=== PATIENT | male | born 1960 | race Caucasian/White ===

== ENCOUNTER 2021-06-15 16:08 | Emergency (ER) | payer OTHER ==
[2021-06-15 17:53] VITALS: BP 170/91; PULSE 62; RESP 18; TEMP 98.1
--- NOTE | 2021-06-15 18:35 | ED ---
General Adult HPI - General Chief complaint: Recheck/Abnormal Lab/Rx Stated complaint: Covid Test Time Seen by Provider: 06/15/21 17:58 Source: patient Mode of arrival: ambulatory Limitations: no limitations - Related Data Home Medications Medication Instructions Recorded Confirmed Acetaminophen [Tylenol] 1,000 mg PO Q6H PRN 09/07/15 09/07/15 Previous Rx's Medication Instructions Recorded Ibuprofen [Motrin] 600 mg PO Q6HR PRN #40 day 09/07/15 Allergies Allergy/AdvReac Type Severity Reaction Status Date / Time acetaminophen Allergy Unknown Verified 06/15/21 17:53 [From Darvocet-N 100] propoxyphene napsylate Allergy Unknown Verified 06/15/21 17:53 [From Darvocet-N 100] Review of Systems ROS Statement: Those systems with pertinent positive or pertinent negative responses have been documented in the HPI. ROS Other: All systems not noted in ROS Statement are negative. Past Medical History Past Medical History: Cancer Additional Past Medical History / Comment(s): back pain, colon History of Any Multi-Drug Resistant Organisms: None Reported Past Surgical History: Bowel Resection, Hernia Repair Past Psychological History: No Psychological Hx Reported Smoking Status: Never smoker Past Alcohol Use History: Rare Past Drug Use History: None Reported General Exam Limitations: no limitations Course Vital Signs 06/15/21 17:49 Temperature 98.1 F Pulse Rate 62 Respiratory 18 Rate Blood Pressure 170/91 O2 Sat by Pulse 98 Oximetry Medical Decision Making - Lab Data Lab Results 06/15/21 Range/Units 18:06 Coronavirus (PCR) Detected A (Not Detectd) Disposition Clinical Impression: COVID-19 Disposition: HOME SELF-CARE Condition: Stable Instructions (If sedation given, give patient instructions): Coronavirus Disease 2019 (COVID-19) Additional Instructions: Please return to the emergency department if new or worsening symptoms occur. Can take [id number] zinc, vitamin D, vitamin C. Advised to get pulse oximeter from [facility] and to return to emergency department if oxygen is ever under 90%. Is patient prescribed a controlled substance at d/c from ED?: No Referrals: None,Stated [Primary Care Provider] - 1-2 days Time of Disposition: 18:34
== END 2021-06-15 19:52 | disposition home or self-care (01) ==
LOC: EC 16:08
DX: U07.1 COVID-19 (principal); Z72.89 Other problems related to lifestyle
CPT/HCPCS: 87635; 99282

== ENCOUNTER 2024-03-17 14:31 | Emergency (ER) | payer OTHER ==
[2024-03-17] MEDS: HYDROmorphone 0.5 MG/0.5 ML SYRINGE IVP STA (15:23)
--- NOTE | 2024-03-17 15:24 | ED ---
General Adult HPI - General Source: patient, EMS, RN notes reviewed, old records reviewed Mode of arrival: EMS Limitations: no limitations <Ganesh Wheeler - Last Filed: 03/17/24 15:34> <Raza Zepeda - Last Filed: 03/18/24 06:16> - General Chief complaint: Recheck/Abnormal Lab/Rx Stated complaint: R leg wound Time Seen by Provider: 03/17/24 14:37 - History of Present Illness Initial comments: 63-year-old male with chronic wound to the right ankle. This has been present for at least 6 months. Patient reports increased pain in both the ankle and the right leg itself. He denies new injury. Denies chest pain or dyspnea. Denies fever. Patient denies diagnosis of diabetes. (Ganesh Wheeler) - Related Data Home Medications Medication Instructions Recorded Confirmed Acetaminophen [Tylenol] 1,000 mg PO Q6H PRN 09/07/15 09/07/15 Previous Rx's Medication Instructions Recorded Ibuprofen [Motrin] 600 mg PO Q6HR PRN #40 day 09/07/15 Allergies Allergy/AdvReac Type Severity Reaction Status Date / Time acetaminophen Allergy Unknown Verified 06/15/21 17:53 [From Darvocet-N 100] propoxyphene napsylate Allergy Unknown Verified 06/15/21 17:53 [From Darvocet-N 100] Review of Systems ROS Other: All systems not noted in ROS Statement are negative. <Ganesh Wheeler - Last Filed: 03/17/24 15:34> ROS Other: All systems not noted in ROS Statement are negative. <Raza Zepeda - Last Filed: 03/18/24 06:16> ROS Statement: Those systems with pertinent positive or pertinent negative responses have been documented in the HPI. Past Medical History Past Medical History: Cancer Additional Past Medical History / Comment(s): back pain, colon History of Any Multi-Drug Resistant Organisms: None Reported Past Surgical History: Bowel Resection, Hernia Repair Past Psychological History: No Psychological Hx Reported Smoking Status: Never smoker Past Alcohol Use History: Rare Past Drug Use History: None Reported <Ganesh Wheeler - Last Filed: 03/17/24 15:34> General Exam Limitations: no limitations General appearance: alert, in no apparent distress Head exam: Present: atraumatic, normocephalic Eye exam: Present: normal appearance, PERRL Respiratory exam: Present: normal lung sounds bilaterally. Absent: respiratory distress Cardiovascular Exam: Present: regular rate, normal rhythm GI/Abdominal exam: Present: soft. Absent: distended, tenderness Extremities exam: Present: calf tenderness, other (Ulceration on the medial aspect of the right ankle with mild surrounding erythema) Neurological exam: Present: alert, oriented X3 Psychiatric exam: Present: normal affect, normal mood Skin exam: Present: warm, dry <Ganesh Wheeler - Last Filed: 03/17/24 15:34> Course Vital Signs 03/17/24 03/17/24 03/17/24 14:34 16:19 18:20 Temperature 98.6 F 98.4 F 98.1 F Pulse Rate 84 73 71 Respiratory 18 17 17 Rate Blood Pressure 165/83 135/89 122/72 O2 Sat by Pulse 97 97 96 Oximetry Medical Decision Making - Lab Data Result diagrams: 03/17/24 15:21 <Ganesh Wheeler - Last Filed: 03/17/24 15:34> - Lab Data Result diagrams: 03/17/24 15:21 03/17/24 15:21 <Raza Zepeda - Last Filed: 03/18/24 06:16> - Medical Decision Making Was pt. sent in by a medical professional or institution (RADHA Stiles, CONCHE OPERATOR, urgent care, hospital, or fci...) When possible be specific @ -No Did you speak to anyone other than the patient for history (EMS, parent, family, police, friend...)? What history was obtained from this source @ -No Did you review nursing and triage notes (agree or disagree)? Why? @ -I reviewed and agree with nursing and triage notes Were old charts reviewed (outside hosp., previous admission, EMS record, old EKG, old radiological studies, urgent care reports/EKG's, fci records)? Report findings @ -No old charts were reviewed Differential Diagnosis: Cellulitis, osteomyelitis, diabetic ulcer EKG interpreted by me (3pts min.). @ -As above X-rays interpreted by me (1pt min.). @X-ray ordered, images pending CT interpreted by me (1pt min.). @ -None done U/S interpreted by me (1pt. min.). @ -[Ultrasound for DVT ordered, results pending What testing was considered but not performed or refused? (CT, X-rays, U/S, labs)? Why? @ -None What meds were considered but not given or refused? Why? @ -None Did you discuss the management of the patient with other professionals (professionals i.e. Dr., PA, CONCHE OPERATOR, lab, RT, psych nurse, social media coordinator, dredge mate, teacher, learning officer, case specialist)? Give summary @ -No Was smoking cessation discussed for >3mins.? @ -No Was critical care preformed (if so, how long)? @ -No Were there social determinants of health that impacted care today? How? (Homelessness, low income, unemployed, alcoholism, drug addiction, transportation, low edu. Level, literacy, decrease access to med. care, custodial, rehab)? @ -No Was there de-escalation of care discussed even if they declined (Discuss DNR or withdrawal of care, Hospice)? DNR status @ -No What co-morbidities impacted this encounter? (DM, HTN, Smoking, COPD, CAD, Cancer, CVA, ARF, Chemo, Hep., AIDS, mental health diagnosis, sleep apnea, morbid obesity)? @ -None Was patient admitted / discharged? Hospital course, mention meds given and route, prescriptions, significant lab abnormalities, going to OR and other pertinent info. @ -[Patient with nonhealing wound, pain and swelling to the right lower extremity, workup is initiated, care signed out at shift change awaiting completed workup. (Ganesh Wheeler) Was patient admitted / discharged? Hospital course, mention meds given and route, prescriptions, significant lab abnormalities, going to OR and other pe rtinent info. @ -[I received this patient as a signout, to review the imaging studies. The x-ray of the ankle reveals no evidence of osteomyelitis, bony injury, or gas in the soft tissue., By my interpretation. The patient to follow-up with the wound care center. Undiagnosed new problem with uncertain prognosis? @ -[No] Drug Therapy requiring intensive monitoring for toxicity (Heparin, Nitro, Insulin, Cardizem)? @ -[No] Were any procedures done? @ -[No] Diagnosis/symptom? @ -[Lower extremity ulcer Acute, or Chronic, or Acute on Chronic? @ -[Chronic Uncomplicated (without systemic symptoms) or Complicated (systemic symptoms)? @ -[Uncomplicated Side effects of treatment? @ -[No] Exacerbation, Progression, or Severe Exacerbation? @ -[No] Poses a threat to life or bodily function? How? (Chest pain, [place], [place], pneumonia, PE, COPD, DKA, ARF, appy, cholecystitis, CVA, Diverticulitis, Homicidal, Suicidal, threat to staff... and all critical care pts) @ -[No] (Raza Zepeda) - Lab Data Lab Results 03/17/24 03/17/24 Range/Units 15:21 15:21 WBC 8.4 (3.8-10.6) k/uL RBC 5.06 (4.30-5.90) m/uL Hgb 14.4 (13.0-17.5) gm/dL Hct 45.4 (39.0-53.0) % MCV 89.8 (80.0-100.0) fL MCH 28.4 (25.0-35.0) pg MCHC 31.6 (31.0-37.0) g/dL RDW 13.6 (11.5-15.5) % Plt Count 313 (150-450) k/uL MPV 7.2 Neutrophils % 63 % Lymphocytes % 25 % Monocytes % 6 % Eosinophils % 2 % Basophils % 1 % Neutrophils # 5.3 (1.3-7.7) k/uL Lymphocytes # 2.1 (1.0-4.8) k/uL Monocytes # 0.5 (0-1.0) k/uL Eosinophils # 0.2 (0-0.7) k/uL Basophils # 0.1 (0-0.2) k/uL Hypochromasia Slight Sodium 137 (137-145) mmol/L Potassium 4.9 (3.5-5.1) mmol/L Chloride 105 (98-107) mmol/L Carbon Dioxide 23 (22-30) mmol/L Anion Gap 9 mmol/L BUN 10 (9-20) mg/dL Creatinine 0.96 (0.66-1.25) mg/dL Est GFR (CKD-EPI)AfAm >90 (>60 ml/min/1.73 sqM) Est GFR (CKD-EPI)NonAf 85 (>60 ml/min/1.73 sqM) Glucose 98 (74-99) mg/dL Calcium 9.6 (8.4-10.2) mg/dL Total Bilirubin 1.0 (0.2-1.3) mg/dL AST 36 (17-59) U/L ALT 24 (4-49) U/L Alkaline Phosphatase 75 (38-126) U/L Total Protein 8.3 H (6.3-8.2) g/dL Albumin 4.5 (3.5-5.0) g/dL Disposition Is patient prescribed a controlled substance at d/c from ED?: No <Ganesh Wheeler - Last Filed: 03/17/24 15:34> Is patient prescribed a controlled substance at d/c from ED?: No <Raza Zepeda - Last Filed: 03/18/24 06:16> Clinical Impression: Chronic wound of extremity Disposition: HOME SELF-CARE Condition: Good Referrals: None,Stated [Primary Care Provider] - 1-2 days [facility] [NON-STAFF] - 1-2 days
[2024-03-17 15:32] LABS: Basophils # (A) 0.1 k/uL (0-0.2); Basophils % (A) 1 %; Eosinophils # (A) 0.2 k/uL (0-0.7); Eosinophils % (A) 2 %; HCT 45.4 % (39.0-53.0); HGB 14.4 gm/dL (13.0-17.5); Hypochromasia Slight; Lymphocytes # (A) 2.1 k/uL (1.0-4.8); Lymphocytes % (A) 25 %; MCH 28.4 pg (25.0-35.0); MCHC 31.6 g/dL (31.0-37.0); MCV 89.8 fL (80.0-100.0); Mean Platelet Volume 7.2; Monocytes # (A) 0.5 k/uL (0-1.0); Monocytes % (A) 6 %; Neutrophils # (A) 5.3 k/uL (1.3-7.7); Neutrophils % (A) 63 %; Platelet Count 313 k/uL (150-450); RBC 5.06 m/uL (4.30-5.90); RDW 13.6 % (11.5-15.5); WBC 8.4 k/uL (3.8-10.6)
[2024-03-17 15:43] LABS: ALT 24 U/L (4-49); African American GFR (CKD) >90 (>60 ml/min/1.73 sqM); Anion Gap 9 mmol/L; Blood Urea Nitrogen 10 mg/dL (9-20); Calcium 9.6 mg/dL (8.4-10.2); Carbon Dioxide 23 mmol/L (22-30); Chloride 105 mmol/L (98-107); Glucose 98 mg/dL (74-99); Non-African American GFR(CKD) 85 (>60 ml/min/1.73 sqM); Sodium 137 mmol/L (137-145)
[2024-03-17 15:52] LABS: AST 36 U/L (17-59); Albumin 4.5 g/dL (3.5-5.0); Potassium 4.9 mmol/L (3.5-5.1); Total Protein 8.3 g/dL (6.3-8.2)
[2024-03-17 15:53] LABS: Alkaline Phosphatase 75 U/L (38-126)
--- NOTE | 2024-03-17 16:12 | US ---
EXAMINATION TYPE: US venous doppler duplex LE RT DATE OF EXAM: 03/17/2024 4:02 PM COMPARISON: NONE CLINICAL INDICATION: Male, 63 years old with history of pain/swelling; [place] injury about 6 mo nths ago TECHNIQUE: The lower extremity deep venous system is examined utilizing real time linear array sonog darin with graded compression, color doppler sonography, and spectral doppler. SIDE PERFORMED: Right FINDINGS: VESSELS IMAGED: Common Femoral Vein Deep Femoral Vein Greater Saphenous Vein * Femoral Vein Popliteal Vein Small Saphenous Vein * Proximal Calf Veins (* superficial vessels) Right Leg: Negative for DVT Left Leg: Not ordered Grayscale, color doppler, spectral doppler imaging performed of the deep veins of the lower extremiti es. IMPRESSION: 1. Right lower extremity ultrasound negative for deep thrombosis [facility], Workstation: [facility], 03/17/2024 4:09 PM
--- NOTE | 2024-03-17 16:24 | XR ---
EXAMINATION TYPE: XR ankle complete RT DATE OF EXAM: 03/17/2024 COMPARISON: None HISTORY: Nonhealing wound right ankle TECHNIQUE: 3 view right ankle FINDINGS: Ankle mortise is intact. No acute fracture or dislocation is evident. There is soft tissue change through the medial distal right foreleg. Mild soft tissue swelling over t he medial malleolus. Underlying cortex appears intact. No acute osteomyelitis radiographically appare nt. Three-phase bone scan performed for sufficient clinical suspicion. IMPRESSION: 1. No radiographic evidence of osteomyelitis. 2. Soft tissue changes medial right ankle. [facility], Workstation: [facility], 03/17/2024 4:21 PM
[2024-03-17 16:25] VITALS: RESP 17
[2024-03-17 18:23] VITALS: BP 122/72; PULSE 71; TEMP 98.1
== END 2024-03-17 18:27 | disposition home or self-care (01) ==
LOC: EC 14:31
CPT/HCPCS: 36415; 80053; 85025; 99284

== ENCOUNTER 2024-05-18 17:11 | Emergency (ER) | payer OTHER ==
[2024-05-18 17:18] VITALS: TEMP 97.7
[2024-05-18] MEDS: LIDOCAINE VISCOUS 2% 15 ML CUP MUCOUS MEM STA (17:40)
--- NOTE | 2024-05-18 18:03 | XR ---
EXAMINATION TYPE: XR soft tissue neck DATE OF EXAM: 05/18/2024 5:50 PM COMPARISON: None available. CLINICAL INDICATION: Male, 63 years old with history of cough; [facility] TECHNIQUE: The soft tissues of the neck were imaged in frontal and lateral views. FINDINGS: The prevertebral soft tissues are unremarkable. There is no evidence of mass effect or trac heal deviation. No acute osseous abnormality demonstrated. No evidence of subglottic narrowing. Cer vical spine degenerative changes. IMPRESSION: No significant abnormality identified within the soft tissues of the neck. [facility], , 05/18/2024 6:01 PM
--- NOTE | 2024-05-18 19:19 | ED ---
ENT HPI - General Chief complaint: ENT Stated complaint: Sore throat Time Seen by Provider: 05/18/24 17:15 Source: patient, EMS Mode of arrival: EMS Limitations: no limitations - History of Present Illness Initial comments: This patient is a 63-year-old man who presents to have evaluation for sore throat. The patient states he is having approximately a month of intermittent burning pain that is worse with swallowing. He states it seems to be a little worse over the past few days. The patient has not developed any change in his voice. No difficulty with breathing. He has been able to control his own secretions. Patient has not noted fever or chills. MD complaint: sore throat Onset/Timin -: month(s) Location: throat Severity: moderate Quality: burning Consistency: intermittent Improves with: none Worsens with: swallowing Associated Symptoms: cough - Related Data Home Medications Medication Instructions Recorded Confirmed Acetaminophen [Tylenol] 1,000 mg PO Q6H PRN 09/07/15 09/07/15 Previous Rx's Medication Instructions Recorded Ibuprofen [Motrin] 600 mg PO Q6HR PRN #40 day 09/07/15 Lidocaine Viscous [Xylocaine 5 ml PO Q3HR PRN #100 ml 05/18/24 Viscous 2%] Amoxic-Pot Clav 875-125Mg 1 tab PO Q12HR #20 tab 05/21/24 [Augmentin 875-125] Ibuprofen [Motrin] 800 mg PO Q6HR #30 tab 05/21/24 Allergies Allergy/AdvReac Type Severity Reaction Status Date / Time acetaminophen Allergy Unknown Verified 05/18/24 17:17 [From Darvocet-N 100] ibuprofen [From Motrin] Allergy Unknown Verified 05/21/24 12:38 propoxyphene napsylate Allergy Unknown Verified 05/18/24 17:17 [From Darvocet-N 100] Review of Systems ROS Statement: Those systems with pertinent positive or pertinent negative responses have been documented in the HPI. ROS Other: All systems not noted in ROS Statement are negative. Constitutional: Denies: fever, chills ENT: Reports: throat pain. Denies: ear pain, hearing loss, congestion Respiratory: Denies: cough, dyspnea Cardiovascular: Denies: chest pain, palpitations Gastrointestinal: Denies: abdominal pain, nausea, vomiting Genitourinary: Denies: dysuria Musculoskeletal: Denies: arthralgia Skin: Denies: rash Neurological: Denies: headache Past Medical History Past Medical History: Cancer Additional Past Medical History / Comment(s): back pain, colon History of Any Multi-Drug Resistant Organisms: None Reported Past Surgical History: Bowel Resection, Hernia Repair Past Psychological History: No Psychological Hx Reported Smoking Status: Never smoker Past Alcohol Use History: Occasional Past Drug Use History: None Reported General Exam Limitations: no limitations General appearance: alert, in no apparent distress Head exam: Present: atraumatic, normocephalic Eye exam: Present: normal appearance. Absent: scleral icterus, conjunctival injection ENT exam: Present: normal oropharynx, mucous membranes moist, TM's normal bilaterally, normal external ear exam Neck exam: Present: normal inspection, full ROM. Absent: tenderness, meningismus, lymphadenopathy Respiratory exam: Present: normal lung sounds bilaterally. Absent: respiratory distress, wheezes, rales, rhonchi, stridor, accessory muscle use Cardiovascular Exam: Present: regular rate, normal rhythm, normal heart sounds. Absent: systolic murmur, diastolic murmur, rubs, gallop GI/Abdominal exam: Present: soft. Absent: distended, tenderness, guarding, rebound, organomegaly Neurological exam: Present: CN II-XII intact Skin exam: Present: warm, dry, intact, normal color. Absent: rash Course Vital Signs 05/18/24 05/18/24 05/18/24 17:12 18:26 19:56 Temperature 97.7 F Pulse Rate 67 60 81 Respiratory 20 16 18 Rate Blood Pressure 152/104 128/85 131/85 O2 Sat by Pulse 98 96 97 Oximetry Medical Decision Making - Medical Decision Making The patient had soft tissue of the neck x-ray that I interpreted as negative for evidence of airway compromise or obvious mass. Was pt. sent in by a medical professional or institution (, PA, JOB CHECKER, urgent care, hospital, or retirement...) When possible be specific @ -[No] Did you speak to anyone other than the patient for history (EMS, parent, family, police, friend...)? What history was obtained from this source @ -[No] Did you review nursing and triage notes (agree or disagree)? Why? @ -[I reviewed and agree with nursing and triage notes] Were old charts reviewed (outside hosp., previous admission, EMS record, old EKG, old radiological studies, urgent care reports/EKG's, retirement records)? Report findings @ -[No old charts were reviewed] Differential Diagnosis (chest pain, altered mental status, abdominal pain women, abdominal pain men, vaginal bleeding, weakness, fever, dyspnea, syncope, headache, dizziness, GI bleed, back pain, seizure, CVA, palpatations, mental health, musculoskeletal)? @ -[differential pharyngitis includes but not limited to: Infectious pharyng itis, reflux disease, trauma, mass (including neoplasm), autoimmune disorder, EKG interpreted by me (3pts min.). @ -[As above] X-rays interpreted by me (1pt min.). @ -[I interpreted as above CT interpreted by me (1pt min.). @ -[None done] U/S interpreted by me (1pt. min.). @ -[None done] What testing was considered but not performed or refused? (CT, X-rays, U/S, labs)? Why? @ -[None] What meds were considered but not given or refused? Why? @ -[None] Did you discuss the management of the patient with other professionals (professionals i.e. , PA, JOB CHECKER, lab, RT, psych nurse, social scientist, ballet dancer, teacher, army officer, outpatient case manager)? Give summary @ -[No] Was smoking cessation discussed for >3mins.? @ -[No] Was critical care preformed (if so, how long)? @ -[No] Were there social determinants of health that impacted care today? How? (Homelessness, low income, unemployed, alcoholism, drug addiction, transportation, low edu. Level, literacy, decrease access to med. care, nursing home, re hab)? @ -[No] Was there de-escalation of care discussed even if they declined (Discuss DNR or withdrawal of care, Hospice)? DNR status @ -[No] What co-morbidities impacted this encounter? (DM, HTN, Smoking, COPD, CAD, Cancer, CVA, ARF, Chemo, Hep., AIDS, mental health diagnosis, sleep apnea, morbid obesity)? @ -[None] Was patient admitted / discharged? Hospital course, mention meds given and ro [place], prescriptions, significant lab abnormalities, going to OR and other pertinent info. @ -[Patient is 63-year-old man here with sore throat and mild dysphagia. I am unable to visualize any lesion here, and the patient has no evidence of airway compromise. Given the duration of symptoms, the patient will follow with ENT for further workup. Discussed return parameters as well. Undiagnosed new problem with uncertain prognosis? @ -[No] Drug Therapy requiring intensive monitoring for toxicity (Heparin, Nitro, Insulin, Cardizem)? @ -[No] Were any procedures done? @ -[No] Diagnosis/symptom? @ -[Pharyngitis Acute, or Chronic, or Acute on Chronic? @ -[Acute Uncomplicated (without systemic symptoms) or Complicated (systemic symptoms)? @ -[Uncomplicated Side effects of treatment? @ -[No] Exacerbation, Progression, or Severe Exacerbation? @ -[No] Poses a threat to life or bodily function? How? (Chest pain, [place], [place], pneumonia, PE, COPD, DKA, ARF, appy, cholecystitis, CVA, Diverticulitis, Homicidal, Suicidal, threat to staff... and all critical care pts) @ -[Low likelihood but does require follow-up All treatments are based on ideal body weight as in ED triage - Lab Data Lab Results 05/18/24 Range/Units 17:42 Group A Strep (PCR) NOT DETECTED (Not Detectd) Disposition Clinical Impression: Pharyngitis Disposition: HOME SELF-CARE Condition: Good Instructions (If sedation given, give patient instructions): Pharyngitis (ED) Prescriptions: Lidocaine Viscous [Xylocaine Viscous 2%] 5 ml PO Q3HR PRN #100 ml PRN Reason: Sore Throat Is patient prescribed a controlled substance at d/c from ED?: No Referrals: None,Stated [Primary Care Provider] - 1-2 days Khoi Zuniga MD [STAFF PHYSICIAN] - 1-2 days
[2024-05-18 19:57] VITALS: BP 131/85; PULSE 81; RESP 18
== END 2024-05-18 19:58 | disposition home or self-care (01) ==
LOC: EC 17:11
DX: J02.9 Acute pharyngitis, unspecified (principal); Z88.6 Allergy status to analgesic agent; Z88.8 Allergy status to other drugs, medicaments and biological substances
CPT/HCPCS: 70360; 87651; 99283

== ENCOUNTER 2024-05-21 12:11 | Emergency (ER) | payer OTHER ==
[2024-05-21 12:37] VITALS: RESP 18
--- NOTE | 2024-05-21 13:18 | ED ---
General Adult HPI - General Chief complaint: ENT Stated complaint: Sore throat Time Seen by Provider: 05/21/24 12:40 Source: patient, RN notes reviewed Mode of arrival: ambulatory Limitations: no limitations - History of Present Illness Initial comments: This is a 63-year-old male presenting to the emergency room for chief complaint of a reevaluation. Patient states that over the weekend he presented for throat pain and ear pain. Patient was discharged home with lidocaine spray however states that symptoms have not improved. States that he has pain with swallowing. He states he has been experiencing a dry cough as well. Endorses chills with no fevers. Denies emesis, abdominal pain, chest pain. - Related Data Home Medications Medication Instructions Recorded Confirmed Acetaminophen [Tylenol] 1,000 mg PO Q6H PRN 09/07/15 09/07/15 Previous Rx's Medication Instructions Recorded Ibuprofen [Motrin] 600 mg PO Q6HR PRN #40 day 09/07/15 Lidocaine Viscous [Xylocaine 5 ml PO Q3HR PRN #100 ml 05/18/24 Viscous 2%] Amoxic-Pot Clav 875-125Mg 1 tab PO Q12HR #20 tab 05/21/24 [Augmentin 875-125] Ibuprofen [Motrin] 800 mg PO Q6HR #30 tab 05/21/24 Allergies Allergy/AdvReac Type Severity Reaction Status Date / Time acetaminophen Allergy Unknown Verified 05/18/24 17:17 [From Darvocet-N 100] ibuprofen [From Motrin] Allergy Unknown Verified 05/21/24 12:38 propoxyphene napsylate Allergy Unknown Verified 05/18/24 17:17 [From Darvocet-N 100] Review of Systems ROS Statement: Those systems with pertinent positive or pertinent negative responses have been documented in the HPI. ROS Other: All systems not noted in ROS Statement are negative. Past Medical History Past Medical History: Cancer Additional Past Medical History / Comment(s): back pain, colon History of Any Multi-Drug Resistant Organisms: None Reported Past Surgical History: Bowel Resection, Hernia Repair Past Psychological History: No Psychological Hx Reported Smoking Status: Never smoker Past Alcohol Use History: Occasional Past Drug Use History: None Reported General Exam Limitations: no limitations General appearance: alert, in no apparent distress Expanded TM/Canal exam: Erythema: Right TM, Bulging: Right TM, Effusion: Right TM Throat exam: tonsillar erythema. negative: tonsillar exudate, R peritonsillar mass, L peritonsillar mass Neck exam: Present: normal inspection, full ROM, lymphadenopathy. Absent: meningismus Respiratory exam: Present: normal lung sounds bilaterally. Absent: respiratory distress, wheezes, rales, rhonchi, stridor Cardiovascular Exam: Present: regular rate, normal rhythm, normal heart sounds. Absent: systolic murmur, diastolic murmur, rubs, gallop, clicks GI/Abdominal exam: Present: soft, normal bowel sounds. Absent: distended, tenderness, guarding, rebound, rigid Back exam: Present: normal inspection Course Vital Signs 05/21/24 05/21/24 12:35 15:01 Temperature 98.5 F 98 F Pulse Rate 79 71 Respiratory 18 18 Rate Blood Pressure 135/81 O2 Sat by Pulse 97 95 Oximetry Medical Decision Making - Medical Decision Making Was pt. sent in by a medical professional or institution (, PA, ROAD PACKER OPERATOR, urgent care, hospital, or [facility]...) When possible be specific @ -No Did you speak to anyone other than the patient for history (EMS, parent, family, police, friend...)? What history was obtained from this source @ -No Did you review nursing and triage notes (agree or disagree)? Why? @ -I reviewed and agree with nursing and triage notes Were old charts reviewed (outside hosp., previous admission, EMS record, old EKG, old radiological studies, urgent care reports/EKG's, [facility] records)? Report findings @ -Reviewed patient's previous x-ray soft tissue neck with no acute process Differential Diagnosis (chest pain, altered mental status, abdominal pain women, abdominal pain men, vaginal bleeding, weakness, fever, dyspnea, syncope, headache, dizziness, GI bleed, back pain, seizure, CVA, palpatations, mental health, musculoskeletal)? @ -COVID 19, RSV, influenza, pneumonia, acute bronchitis, URI, this list is not all inclusive EKG interpreted by me (3pts min.). @ -None X-rays interpreted by me (1pt min.). @ -None done CT interpreted by me (1pt min.). @ -None done U/S interpreted by me (1pt. min.). @ -None done What testing was considered but not performed or refused? (CT, X-rays, U/S, labs)? Why? @ -None What meds were considered but not given or refused? Why? @ -None Did you discuss the management of the patient with other professionals (professionals i.e. , PA, ROAD PACKER OPERATOR, lab, RT, psych nurse, psych social worker, fur liner, te acher, employment security officer, complex case manager)? Give summary @ -No Was smoking cessation discussed for >3mins.? @ -No Was critical care preformed (if so, how long)? @ -No Were there social determinants of health that impacted care today? How? (Homelessness, low income, unemployed, alcoholism, drug addiction, transportation, low edu. Level, literacy, decrease access to med. care, correction, rehab)? @ -No Was there de-escalation of care discussed even if they declined (Discuss DNR or withdrawal of care, Hospice)? DNR status @ -No What co-morbidities impacted this encounter? (DM, HTN, Smoking, COPD, CAD, Cancer, CVA, ARF, Chemo, Hep., AIDS, mental health diagnosis, sleep apnea, morbid obesity)? @ -None Was patient admitted / discharged? Hospital course, mention meds given and route, prescriptions, significant lab abnormalities, going to OR and other pertinent info. @ -Discharge. 63-year-old male presenting with sore throat and ear pain. vitals are stable. He is noted to have posterior oropharynx erythema with no signs of peritonsillar exudates and/or abscess. Physical exam of the right TM concerning for otitis media with effusion, erythema and bulging TM. Patient's provided with dose of Decadron. Swabs including flu, COVID, RSV, strep negative. Patient provided with prescription for Augmentin and instructed to follow-up with primary care provider for further evaluation. Additionally, patient is inquired in regard to allergy for ibuprofen however states that he has been taking Motrin and ibuprofen at home therefore prescription is sent to the pharmacy for ibuprofen 800. Discussed with Dr. Whitaker Undiagnosed new problem with uncertain prognosis? @ -No Drug Therapy requiring intensive monitoring for toxicity (Heparin, Nitro, Insulin, Cardizem)? @ -No Were any procedures done? @ -No Diagnosis/symptom? @ -otitis media, pharyngitis Acute, or Chronic, or Acute on Chronic? @ -acute Uncomplicated (without systemic symptoms) or Complicated (systemic symptoms)? @ -uncomplicated Side effects of treatment? @ -No Exacerbation, Progression, or Severe Exacerbation? @ -No Poses a threat to life or bodily function? How? (Chest pain, [place], [place], pneumonia, PE, COPD, DKA, ARF, appy, cholecystitis, CVA, Diverticulitis, Homicidal, Suicidal, threat to staff... and all critical care pts) @ -No - Lab Data Lab Results 05/21/24 05/21/24 Range/Units 13:24 13:24 Influenza Type A (PCR) Not Detected (Not Detectd) Influenza Type B (PCR) Not Detected (Not Detectd) RSV (PCR) Not Detected (Not Detectd) SARS-CoV-2 (PCR) Not Detected (Not Detectd) Group A Strep (PCR) NOT DETECTED (Not Detectd) Disposition Clinical Impression: Otitis media, Pharyngitis Disposition: HOME SELF-CARE Condition: Good Instructions (If sedation given, give patient instructions): Ear Infection (ED) Additional Instructions: Please return to the Emergency Department if symptoms worsen or any other concerns. Prescriptions: Amoxic-Pot Clav 875-125Mg [Augmentin 875-125] 1 tab PO Q12HR #20 tab Ibuprofen [Motrin] 800 mg PO Q6HR #30 tab Is patient prescribed a controlled substance at d/c from ED?: No Referrals: None,Stated [Primary Care Provider] - 1-2 days Time of Disposition: 14:41
[2024-05-21] MEDS: DEXAMETHASONE SOD PHOSPHATE 4 MG/ML 1 ML VIAL IM STA (13:25)
[2024-05-21 15:02] VITALS: BP 135/81; PULSE 71; TEMP 98
== END 2024-05-21 15:04 | disposition home or self-care (01) ==
LOC: EC 12:11
DX: H66.91 Otitis media, unspecified, right ear (principal); J02.9 Acute pharyngitis, unspecified; Z88.6 Allergy status to analgesic agent
CPT/HCPCS: 87651; 87636; 99283; 96372; J1100

== ENCOUNTER → 2024-05-30 | Outpatient (CLI) | payer OTHER ==
--- NOTE | 2024-05-31 18:24 | US ---
EXAMINATION TYPE: US venous doppler duplex LE RT DATE OF EXAM: 05/30/2024 2:53 PM COMPARISON: US(03/17/2024) CLINICAL INDICATION: Male, 63 years old with history of R600 EDEMA OF RT LOWER LEG; , Pain TECHNIQUE: The lower extremity deep venous system is examined utilizing real time linear array sonog darin with graded compression, color doppler sonography, and spectral doppler. SIDE PERFORMED: Right FINDINGS: VESSELS IMAGED: Common Femoral Vein Deep Femoral Vein Greater Saphenous Vein * Femoral Vein Popliteal Vein Small Saphenous Vein * Proximal Calf Veins (* superficial vessels) Right Leg: Negative for DVT, Color Doppler imaging shows patency of the vessels. Spectral waveforms are within normal limits. IMPRESSION: No ultrasound evidence for deep venous thrombosis. [facility], , 05/31/2024 6:22 PM
== END | disposition home or self-care (01) ==
LOC: RADUSWWP 13:44
DX: R60.0 Localized edema (principal)

== ENCOUNTER 2024-06-07 16:35 | Inpatient (IN) | payer OTHER ==
--- NOTE | 2024-06-07 16:52 | ED ---
Abdominal Pain HPI - General Chief Complaint: Abdominal Pain Stated Complaint: Abd pain Time Seen by Provider: 06/07/24 16:51 Source: patient, EMS Mode of arrival: EMS Limitations: no limitations - History of Present Illness Initial Comments: 63-year-old male presenting with chief complaint of abdominal pain. Pain has been ongoing for the last 3 days. Patient has surgical history including hernia repair and colectomy. He has history of colon cancer. He also reports nausea and vomiting. Also reports pain and infection in his right foot. He recently started taking amoxicillin and reports that vomiting started shortly thereafter. No injury or trauma. No chest pain or difficulty breathing. No fever or chills. No urinary symptoms. - Related Data Home Medications Medication Instructions Recorded Confirmed Albuterol Sulfate [Ventolin HFA] 2 puff INHALATION RT-QID PRN 06/08/24 06/08/24 Ibuprofen [Motrin] 800 mg PO TID PRN 06/08/24 06/08/24 Loratadine [Claritin] 10 mg PO DAILY PRN 06/08/24 06/08/24 Pregabalin [Lyrica] See Taper PO DIRECTED 06/08/24 06/08/24 lidocaine HCL [lidocaine HCL 5 ml PO TID PRN 06/08/24 06/08/24 Viscous] Previous Rx's Medication Instructions Recorded Cephalexin [Keflex] 500 mg PO Q6HR 4 Days #4 cap 06/11/24 Triamcinolone 0.1% Cream [Kenalog 1 applic TOPICAL BID #2 each 06/11/24 0.1% Cream] Allergies Allergy/AdvReac Type Severity Reaction Status Date / Time acetaminophen AdvReac Abdominal Verified 06/08/24 09:24 [From Darvocet-N 100] Pain propoxyphene napsylate AdvReac Abdominal Verified 06/08/24 09:24 [From Darvocet-N 100] Pain Review of Systems ROS Statement: Those systems with pertinent positive or pertinent negative responses have been documented in the HPI. ROS Other: All systems not noted in ROS Statement are negative. Past Medical History Past Medical History: Cancer Additional Past Medical History / Comment(s): back pain, colon History of Any Multi-Drug Resistant Organisms: None Reported Past Surgical History: Bowel Resection, Hernia Repair Past Psychological History: No Psychological Hx Reported Smoking Status: Never smoker Past Alcohol Use History: Occasional Past Drug Use History: None Reported General Exam - General Exam Comments Initial Comments: Visual Physical Exam Vital signs reviewed General: Well-appearing, nontoxic, no acute distress. Head: Normocephalic, atraumatic Eyes: PERRLA, EOMI ENT: Airway patent Chest: Nonlabored breathing Skin: No visual rash, normal skin tone Neuro: Alert and oriented 3 Musculoskeletal: No gross abnormalities Limitations: no limitations General appearance: alert, in no apparent distress Head exam: Present: atraumatic, normocephalic, normal inspection Eye exam: Present: normal appearance, EOMI Neck exam: Present: normal inspection. Absent: meningismus Respiratory exam: Present: normal lung sounds bilaterally. Absent: respiratory distress, wheezes, rales, rhonchi, stridor Cardiovascular Exam: Present: regular rate, normal rhythm, normal heart sounds. Absent: systolic murmur, diastolic murmur, rubs, gallop, clicks GI/Abdominal exam: Present: soft, distended, tenderness. Absent: guarding, rebound, rigid Neurological exam: Present: alert, oriented X3 Psychiatric exam: Present: normal affect, normal mood Skin exam: Present: warm, dry Course Vital Signs 06/07/24 06/08/24 06/08/24 16:44 01:30 03:03 Temperature 98.3 F Pulse Rate 88 76 Pulse Rate [ 63 Pulse Oximetery ] Respiratory 18 18 18 Rate Blood Pressure 125/83 124/88 Blood Pressure 127/84 [Right Arm] O2 Sat by Pulse 97 96 98 Oximetry 06/08/24 06/08/24 08:00 17:00 Temperature 97.9 F 98.3 F Pulse Rate Pulse Rate [ 76 72 Pulse Oximetery ] Respiratory 19 17 Rate Blood Pressure Blood Pressure 120/78 147/85 [Right Arm] O2 Sat by Pulse 94 L Oximetry Medical Decision Making - Medical Decision Making I performed the quick note portion of this visit, electronically signed Abe Vasquez PA-C Was pt. sent in by a medical professional or institution (RADHA Stiles, BAKED GOODS STOCK CLERK, urgent care, hospital, or detention...) When possible be specific @ -No Did you speak to anyone other than the patient for history (EMS, parent, family, police, friend...)? What history was obtained from this source @ -No Did you review nursing and triage notes (agree or disagree)? Why? @ -I reviewed and agree with nursing and triage notes Were old charts reviewed (outside hosp., previous admission, EMS record, old EKG, old radiological studies, urgent care reports/EKG's, detention records)? Report findings @ -No old charts were reviewed Differential Diagnosis (chest pain, altered mental status, abdominal pain women, abdominal pain men, vaginal bleeding, weakness, fever, dyspnea, syncope, headache, dizziness, GI bleed, back pain, seizure, CVA, palpatations, mental health, musculoskeletal)? @ -[facility] Differential Abdominal Pain Men: Appendicitis, cholecystitis, diverticulosis, ischemic bowel, pancreatitis, hepatitis, UTI, gastroenteritis, AAA, incarcerated hernia, bowel obstruction, constipation, inflammatory bowel, hepatitis, peptic ulcer disease, splenic infarction, perforated viscus, testicular torsion... This is not meant to be an all-inclusive list EKG interpreted by me (3pts min.). @ -As above X-rays interpreted by me (1pt min.). @ -X-ray shows no acute fracture or dislocation evident in the right foot. No obvious osseous destruction. Mild to moderate narrowing and spurring at the first MTP joint is seen. Overlying soft tissue is unremarkable CT interpreted by me (1pt min.). @ -CT shows findings consistent with at least partial distal small bowel obstruction. Transition point identified presumed on the basis of adhesions. Addendum is later added to include enlarging left adrenal mass or lesion malignant etiology not entirely excluded, nonemergent follow-up adrenal protocol CT or MRI advised for further evaluation U/S interpreted by me (1pt. min.). @ -None done What testing was considered but not performed or refused? (CT, X-rays, U/S, labs)? Why? @ -None What meds were considered but not given or refused? Why? @ -None Did you discuss the management of the patient with other professionals (professionals i.e. DrFreddie, PA, BAKED GOODS STOCK CLERK, lab, RT, psych nurse, social sciences chair, car hiker, teacher, stream control officer, case aide)? Give summary @ -Discussed the patient with Dr. Sosa, he request the patient be admitted to medicine with surgery on consult Spoke with Dr. Cabrera who accepts admission Was smoking cessation discussed for >3mins.? @ -No Was critical care preformed (if so, how long)? @ -No Were there social determinants of health that impacted care today? How? (Homeles sness, low income, unemployed, alcoholism, drug addiction, transportation, low edu. Level, literacy, decrease access to med. care, alf, rehab)? @ -No Was there de-escalation of care discussed even if they declined (Discuss DNR or withdrawal of care, Hospice)? DNR status @ -No What co-morbidities impacted this encounter? (DM, HTN, Smoking, COPD, CAD, Cancer, CVA, ARF, Chemo, Hep., AIDS, mental health diagnosis, sleep apnea, morbid obesity)? @ -None Was patient admitted / discharged? Hospital course, mention meds given and route, prescriptions, significant lab abnormalities, going to OR and other pertinent info. @ -63-year-old male presenting with chief complaint of abdominal pain. Workup initiated by triage, patient is later placed in a hallway bed and examined by myself. White count 11.1. CRP 1. CT is positive for small bowel obstruction. Patient is placed n.p.o. and NG tube ordered. He is provided with pain and nausea medications and IV fluids. Patient has cellulitis of the foot, x-ray negative for bony destruction. Treated with cefazolin. Patient will be admitted. He is agreeable with this plan. I discussed this case with my attending Dr. Reid Undiagnosed new problem with uncertain prognosis? @ -No Drug Therapy requiring intensive monitoring for toxicity (Heparin, Nitro, Insulin, Cardizem)? @ -No Were any procedures done? @ -No Diagnosis/symptom? @ -Small bowel obstruction, cellulitis Acute, or Chronic, or Acute on Chronic? @ -Acute Uncomplicated (without systemic symptoms) or Complicated (systemic symptoms)? @ -Complicated Side effects of treatment? @ -No Exacerbation, Progression, or Severe Exacerbation? @ -No Poses a threat to life or bodily function? How? (Chest pain, [place], [place], pneumonia, PE, COPD, DKA, ARF, appy, cholecystitis, CVA, Diverticulitis, Homicidal, Suicidal, threat to staff... and all critical care pts) @ -Yes - Lab Data Result diagrams: 06/09/24 02:41 06/11/24 03:16 Lab Results 06/07/24 06/07/24 06/07/24 Range/Units 17:15 17:15 17:15 WBC 11.1 H (3.8-10.6) k/uL RBC 4.82 (4.30-5.90) m/uL Hgb 14.0 (13.0-17.5) gm/dL Hct 42.8 (39.0-53.0) % MCV 88.8 (80.0-100.0) fL MCH 28.9 (25.0-35.0) pg MCHC 32.6 (31.0-37.0) g/dL RDW 13.7 (11.5-15.5) % Plt Count 297 (150-450) k/uL MPV 7.6 Neutrophils % 85 % Lymphocytes % 10 % Monocytes % 4 % Eosinophils % 1 % Basophils % 0 % Neutrophils # 9.5 H (1.3-7.7) k/uL Lymphocytes # 1.1 (1.0-4.8) k/uL Monocytes # 0.4 (0-1.0) k/uL Eosinophils # 0.1 (0-0.7) k/uL Basophils # 0.0 (0-0.2) k/uL Sodium 136 L (137-145) mmol/L Potassium 4.6 (3.5-5.1) mmol/L Chloride 104 (98-107) mmol/L Carbon Dioxide 23 (22-30) mmol/L Anion Gap 9 mmol/L BUN 18 (9-20) mg/dL Creatinine 0.94 (0.66-1.25) mg/dL Est GFR (CKD-EPI)AfAm >90 (>60 ml/min/1.73 sqM) Est GFR (CKD-EPI)NonAf 87 (>60 ml/min/1.73 sqM) Glucose 118 H (74-99) mg/dL Plasma Lactic Acid Alex 1.5 (0.7-2.0) mmol/L Calcium 9.4 (8.4-10.2) mg/dL Total Bilirubin 0.5 (0.2-1.3) mg/dL AST 22 (17-59) U/L ALT 19 (4-49) U/L Alkaline Phosphatase 83 (38-126) U/L C-Reactive Protein 1.0 H (<1.0) mg/dL Total Protein 7.4 (6.3-8.2) g/dL Albumin 4.2 (3.5-5.0) g/dL Amylase 52 (30-110) U/L Lipase 48 (23-300) U/L Urine Color Urine Appearance (Clear) Urine pH (5.0-8.0) Ur Specific [place] (1.001-1.035) Urine Protein (Negative) Urine Glucose (UA) (Negative) Urine Ketones (Negative) Urine Blood (Negative) Urine Nitrite (Negative) Urine Bilirubin (Negative) Urine Urobilinogen (<2.0) mg/dL Ur Leukocyte Esterase (Negative) 06/07/24 Range/Units 20:42 WBC (3.8-10.6) k/uL RBC (4.30-5.90) m/uL Hgb (13.0-17.5) gm/dL Hct (39.0-53.0) % MCV (80.0-100.0) fL MCH (25.0-35.0) pg MCHC (31.0-37.0) g/dL RDW (11.5-15.5) % Plt Count (150-450) k/uL MPV Neutrophils % % Lymphocytes % % Monocytes % % Eosinophils % % Basophils % % Neutrophils # (1.3-7.7) k/uL Lymphocytes # (1.0-4.8) k/uL Monocytes # (0-1.0) k/uL Eosinophils # (0-0.7) k/uL Basophils # (0-0.2) k/uL Sodium (137-145) mmol/L Potassium (3.5-5.1) mmol/L Chloride (98-107) mmol/L Carbon Dioxide (22-30) mmol/L Anion Gap mmol/L BUN (9-20) mg/dL Creatinine (0.66-1.25) mg/dL Est GFR (CKD-EPI)AfAm (>60 ml/min/1.73 sqM) Est GFR (CKD-EPI)NonAf (>60 ml/min/1.73 sqM) Glucose (74-99) mg/dL Plasma Lactic Acid Alex (0.7-2.0) mmol/L Calcium (8.4-10.2) mg/dL Total Bilirubin (0.2-1.3) mg/dL AST (17-59) U/L ALT (4-49) U/L Alkaline Phosphatase (38-126) U/L C-Reactive Protein (<1.0) mg/dL Total Protein (6.3-8.2) g/dL Albumin (3.5-5.0) g/dL Amylase (30-110) U/L Lipase (23-300) U/L Urine Color Light Yellow Urine Appearance Clear (Clear) Urine pH 6.5 (5.0-8.0) Ur Specific [place] >1.050 H (1.001-1.035) Urine Protein Trace H (Negative) Urine Glucose (UA) Negative (Negative) Urine Ketones Negative (Negative) Urine Blood Negative (Negative) Urine Nitrite Negative (Negative) Urine Bilirubin Negative (Negative) Urine Urobilinogen <2.0 (<2.0) mg/dL Ur Leukocyte Esterase Negative (Negative) Disposition Clinical Impression: Partial small bowel obstruction Disposition: ADMITTED IP TO THIS [facility] Condition: Serious Time of Disposition: 22:05
[2024-06-07 17:29] LABS: Basophils % (A) 0 %; Eosinophils # (A) 0.1 k/uL (0-0.7); Eosinophils % (A) 1 %; HCT 42.8 % (39.0-53.0); Lymphocytes # (A) 1.1 k/uL (1.0-4.8); Lymphocytes % (A) 10 %; MCH 28.9 pg (25.0-35.0); MCHC 32.6 g/dL (31.0-37.0); MCV 88.8 fL (80.0-100.0); Mean Platelet Volume 7.6; Monocytes # (A) 0.4 k/uL (0-1.0); Monocytes % (A) 4 %; Neutrophils # (A) 9.5 k/uL (1.3-7.7); Neutrophils % (A) 85 %; Platelet Count 297 k/uL (150-450); RBC 4.82 m/uL (4.30-5.90); RDW 13.7 % (11.5-15.5); WBC 11.1 k/uL (3.8-10.6)
[2024-06-07 17:49] LABS: ALT 19 U/L (4-49); AST 22 U/L (17-59); African American GFR (CKD) >90 (>60 ml/min/1.73 sqM); Albumin 4.2 g/dL (3.5-5.0); Alkaline Phosphatase 83 U/L (38-126); Amylase 52 U/L (30-110); Anion Gap 9 mmol/L; Blood Urea Nitrogen 18 mg/dL (9-20); Calcium 9.4 mg/dL (8.4-10.2); Carbon Dioxide 23 mmol/L (22-30); Chloride 104 mmol/L (98-107); Glucose 118 mg/dL (74-99); Lipase 48 U/L (23-300); Non-African American GFR(CKD) 87 (>60 ml/min/1.73 sqM); Potassium 4.6 mmol/L (3.5-5.1); Sodium 136 mmol/L (137-145); Total Bilirubin 0.5 mg/dL (0.2-1.3); Total Protein 7.4 g/dL (6.3-8.2)
--- NOTE | 2024-06-07 18:04 | XR ---
EXAMINATION TYPE: XR foot complete RT DATE OF EXAM: 06/07/2024 CLINICAL HISTORY: Pain TECHNIQUE: Frontal, lateral, and oblique images of the right foot are obtained. COMPARISON: None FINDINGS: There is no acute fracture/dislocation evident in the right foot. No obvious osseous dest ruction. Mild to moderate narrowing and spurring at the first metatarsophalangeal joint is seen. Over lying soft tissue is unremarkable. IMPRESSION: As above. [facility], , 06/07/2024 6:02 PM
[2024-06-07] MEDS: MORPHINE SULFATE 4 MG/ML SYRINGE IVP STA (19:24)
--- NOTE | 2024-06-07 20:08 | CT ---
EXAMINATION TYPE: CT abdomen pelvis w con DATE OF EXAM: 06/07/2024 COMPARISON: Prior CT 2009. CLINICAL INDICATION: Male, 63 years old with history of abdominal pain; [facility], Pt to ED via EMS for sev ere abdominal pain x three days. Reports hernia surgery 15 years ago and found colon cancer after se cond surgery. Reports pain is same and he feels lumps. TECHNIQUE: Performed without Oral Contrast and with IV Contrast, patient injected with 100cc mL of Isovue 300. CT DLP: 1373.[address] CTDI: 29 mGy Automated exposure control for dose reduction was used. FINDINGS: LUNG BASES: No significant abnormality is appreciated. LIVER/GB: Liver remains diffusely low dense suggesting diffuse fatty infiltrative hepatocellular dise ase. PANCREAS: No significant abnormality is seen. SPLEEN: No significant abnormality is seen. ADRENALS: Larger left adrenal mass measuring 2.5 x 2.4 cm axial image 20. Hounsfield units average 50 on postcontrast imaging. KIDNEYS: No significant abnormality is seen. FREE AIR: No free air is visualized. RETROPERITONEAL ADENOPATHY: None visualized REPRODUCTIVE ORGANS: No significant abnormality is seen URINARY BLADDER: No significant abnormality is seen. PELVIC ADENOPATHY: None visualized. OSSEOUS STRUCTURES: [id number] multilevel disc space narrowing. BOWEL: Mild fluid distention of the gastric fundus. There is poor distention of the gastric antrum a nd pylorus. No suspicious dilatation of the duodenal sweep. Nondilated proximal small bowel loops in the left abdomen are noted. There are more prominent small bowel loops in the lower abdomen with air-fluid levels. Some distal co lonic diverticula. No CT evidence for acute diverticulitis. Terminal ileum is nondistended. There are surgical changes to prominent fluid-filled small bowel loop in the right upper to midabdomen axial i mage 28. There are additional fecal prominent small bowel loops in the right lower quadrant. There is abnormal bowel dilatation up to 3.4 cm on coronal image 55. Transition point is in the anterior mida bdomen axial image 45. OTHER: No suspicious incidental finding. IMPRESSION: FINDINGS CONSISTENT WITH AT LEAST PARTIAL DISTAL SMALL BOWEL OBSTRUCTION ARE PRESENT DETAILED ABOV E, TRANSITION POINT IDENTIFIED PRESUMED ON THE BASIS OF ADHESIONS. ADVISE SURGICAL EVALUATION. [facility], , 06/07/2024 8:06 PM
[2024-06-07 21:06] LABS: Appearance,Urine Clear (Clear); Bilirubin,Urine Negative (Negative); Blood,Urine Negative (Negative); Color,Urine Light Yellow; Glucose,Urine (UA) Negative (Negative); Ketones,Urine Negative (Negative); Leukocyte Esterase,Urine Negative (Negative); Nitrite,Urine Negative (Negative); PH, Urine 6.5 (5.0-8.0); Protein,Urine Trace (Negative); Urobilinogen,Urine <2.0 mg/dL (<2.0)
[2024-06-07 21:11] LABS: Specific Gravity,Urine >1.050 (1.001-1.035)
[2024-06-07] MEDS: ONDANSETRON 4 MG/2 ML VIAL IVP PRN (21:43)
[2024-06-07] MEDS: SODIUM CHLORIDE 0.9% 1,000 ML IV SCH (22:11)
[2024-06-07] MEDS ORDERED: NALOXONE 0.4 MG/ML 1 ML VIAL IV PRN (22:11)
[2024-06-07] MEDS: MORPHINE SULFATE 4 MG/ML SYRINGE IVP PRN (23:45)
--- NOTE | 2024-06-08 00:11 | P.HPIM ---
History of Present Illness H&P Date: 06/07/24 Chief Complaint: Abdominal pain Patient is a 63-year-old male patient well-known to me with PMHx of colon cancer and 2 hernia repair presents to the emergency department with chief complaint of abdominal pain. Patient states it has been going on for the last 3 to 4 days. He states initially it felt like pressure and he had to void, but the pain got progressively worse and today he rated it a 10 out of 10. Additionally, he reports he had a fever of 101 and chills today. He states he has had 7 episodes of yellow to clear nonbloody vomiting over the last 2 days. He states he has been incredibly nauseous and unable to eat anything. He states his last meal was 4 days ago and he has been only sipping on some water. He also endorses constipation and reports his last bowel movement was yesterday and states it was minimal even with straining. Additionally the patient has chronic cellulitis of the right lower extremity, which was most recently evaluated and patient was started on Bactrim only took 1 dose yesterday. He denies any headaches, diarrhea, alcohol use, travel, or sick contacts. ED documentation reviewed. Vitals on admission the 8.3, heart rate 88, respiratory rate 18, blood pressure 125/83, O2 saturation 97% on room air Foot x-ray shows no acute fracture or dislocation, no obvious osseous destruction, mild to moderate narrowing and spurring at first metatarsophalangeal joint, overlying soft tissue unremarkable. CT abdomen pelvis with contrast showed prominent small bowel loops in right lower quadrant and bowel dilation. Findings are consistent with partial SBO. Labs on admission show WBC 11.1 with left shift, hemoglobin 14, platelets 297. Sodium 136, potassium 4.6, chloride 104, bicarb 23, BUN 18, creatinine 0.94, glucose 118. CRP 1. UA shows specific gravity greater than 1.05, and trace pro teins. Review of systems: Pertinent positives and negatives as discussed in HPI, a complete review of systems was performed and all other systems are negative. PMH: Colon cancer, asthma PSH: Hernia repair x 2 Allergies: Darvocet Social history: Tobacco: None Alcohol: None Recreational drugs: None Travel: None Sick contacts: None Physical examination: Vital signs reviewed General: nontoxic, no distress, appears at stated age Derm: warm, dry, intact Head: atraumatic, normocephalic, symmetric Eyes: anicteric sclera Mouth: no lip lesion, mucus membranes moist Cardiovascular: S1 S2 reg, no murmur Lungs: CTA bilateral, no rhonchi, no rales, no accessory muscle use Abdominal: Soft nondistended, diffuse tenderness to palpation, most notable in lower quadrants Extremities: Erythema of right lower extremity from foot to mid [place] with notable skin breaks but without drainage. Extremity is warm and there is decreased sensation on the dorsum. Popliteal, posterior tibial, and dorsalis pedis pulses palpable bilaterally. Neuro: Alert, Oriented to person, time and place, Gross neurological examination did not reveal any focal deficits. Cranial nerves II to XII grossly intact. Bilateral upper and lower extremity muscle strength intact and sensation intact. Psych: well appearing, appropriate affect Assessment/Plan: Patient is a 63-year-old male with past medical history of colon cancer and 2 hernia repairs who presents to the ED with chief complaint of abdominal pain. Patient will be admitted to medicine service for further management of partial small bowel obstruction. Active: Partial small bowel obstruction NG tube to low intermittent suction Patient will remain NPO Continue 0.9% NS at 130 mL/h Continue Zofran 4 mg every 6 hours as needed Continue Morphine 4 mg IVP every 4 hours as needed Continue Toradol 15 mg IVP every 6 hours as needed General Surgery consult Cellulitis of right lower extremity, present on admission C/w Cefazolin Consult wound care Consult infectious disease Chronic: Asthma Continue albuterol May resume Singulair and loratadine when oral intake is resumed F: 0.9% NS at 130 mL/h E: Replete as needed N: NPO A: As tolerated DVT prophylaxis: Lovenox 40mg daily The patient is admitted with an anticipated more than 2 midnight stay for evaluation of partial SBO CODE STATUS: Full code Discussed with: Patient Anticipated discharge place: Home Past Medical History Past Medical History: Cancer Additional Past Medical History / Comment(s): back pain, colon History of Any Multi-Drug Resistant Organisms: None Reported Past Surgical History: Bowel Resection, Hernia Repair Past Psychological History: No Psychological Hx Reported Smoking Status: Never smoker Past Alcohol Use History: Occasional Past Drug Use History: None Reported Medications and Allergies Home Medications Medication Instructions Recorded Confirmed Type Acetaminophen [Tylenol] 1,000 mg PO Q6H PRN 09/07/15 09/07/15 History Ibuprofen [Motrin] 600 mg PO Q6HR PRN #40 day 09/07/15 Rx Lidocaine Viscous [Xylocaine 5 ml PO Q3HR PRN #100 ml 05/18/24 Rx Viscous 2%] Amoxic-Pot Clav 875-125Mg 1 tab PO Q12HR #20 tab 05/21/24 Rx [Augmentin 875-125] Ibuprofen [Motrin] 800 mg PO Q6HR #30 tab 05/21/24 Rx Allergies Allergy/AdvReac Type Severity Reaction Status Date / Time acetaminophen Allergy Unknown Verified 06/07/24 16:44 [From Darvocet-N 100] propoxyphene napsylate Allergy Unknown Verified 06/07/24 16:44 [From Darvocet-N 100] Physical Exam Vitals: Vital Signs Temp Pulse Resp BP Pulse Ox 06/07/24 16:44 98.3 F 88 18 125/83 97 Intake and Output 06/07/24 06/07/24 06/07/24 06:59 14:59 22:59 Other: Weight 98.43 kg Results CBC & Chem 7: 06/07/24 17:15 06/07/24 17:15 Labs: Abnormal Lab Results - Last 24 Hours (Table) 06/07/24 06/07/24 06/07/24 Range/Units 17:15 17:15 20:42 WBC 11.1 H (3.8-10.6) k/uL Neutrophils # 9.5 H (1.3-7.7) k/uL Sodium 136 L (137-145) mmol/L Glucose 118 H (74-99) mg/dL C-Reactive Protein 1.0 H (<1.0) mg/dL Ur Specific [place] >1.050 H (1.001-1.035) Urine Protein Trace H (Negative)
--- NOTE | 2024-06-08 02:17 | XR ---
EXAM: XR Chest, 1 View CLINICAL HISTORY: ITS.REASON XR Reason: NG Tube TECHNIQUE: Frontal view of the chest. COMPARISON: None FINDINGS: Hardware: Enteric tube terminates in the region of the gastric body. Lungs/pleura: Normal. No focal consolidation. No pleural effusion or pneumothorax. Heart/mediastinum: Normal. No cardiomegaly. Soft tissues: Unremarkable. Bones: No acute fracture. Degenerative changes of the spine. Upper abdomen: Normal. IMPRESSION: Enteric tube terminates in the region of the gastric body.
[2024-06-08] MEDS: KETOROLAC 15 MG/ML 1 ML VIAL IVP PRN (02:57)
[2024-06-08] MEDS ORDERED: ALBUTEROL NEBULIZED 2.5 MG/3 ML INHALATION PRN (04:23)
[2024-06-08 07:06] LABS: Basophils % (A) 0 %; Eosinophils # (A) 0.2 k/uL (0-0.7); Eosinophils % (A) 2 %; HCT 42.8 % (39.0-53.0); HGB 13.6 gm/dL (13.0-17.5); Hypochromasia Slight; Lymphocytes # (A) 1.7 k/uL (1.0-4.8); Lymphocytes % (A) 19 %; MCH 28.5 pg (25.0-35.0); MCHC 31.7 g/dL (31.0-37.0); Mean Platelet Volume 8.1; Monocytes # (A) 0.5 k/uL (0-1.0); Monocytes % (A) 5 %; Neutrophils # (A) 6.4 k/uL (1.3-7.7); Neutrophils % (A) 72 %; Platelet Count 304 k/uL (150-450); RBC 4.76 m/uL (4.30-5.90); RDW 14.3 % (11.5-15.5)
[2024-06-08] MEDS: ENOXAPARIN 40 MG/0.4 ML SYRINGE SQ SCH (09:18)
[2024-06-08] MEDS: SODIUM CHLORIDE 0.9% 1,000 ML IV SCH (11:14)
--- NOTE | 2024-06-08 12:53 | P.CON ---
Consult Note - . Consult date: 06/08/24 Assessment/Plan:: 63-year-old male presenting with chief complaint of abdominal pain. Pain has been ongoing for the last 3 days. Patient has surgical history including hernia repair and colectomy. He has history of colon cancer. He also reports nausea a nd vomiting. Also reports pain and infection in his right foot. He recently started taking amoxicillin and reports that vomiting started shortly thereafter. CT-AP shows evidence of partial small bowel obstruction Review of Systems ROS Statement: Those systems with pertinent positive or pertinent negative responses have been documented in the HPI. ROS Other: All systems not noted in ROS Statement are negative. Past Medical History Past Medical History: Cancer Additional Past Medical History / Comment(s): back pain, colon History of Any Multi-Drug Resistant Organisms: None Reported Past Surgical History: Bowel Resection, Hernia Repair Past Psychological History: No Psychological Hx Reported Smoking Status: Never smoker Past Alcohol Use History: Occasional Past Drug Use History: None Reported General Exam Vital signs reviewed General: Well-appearing, nontoxic, no acute distress. Head: Normocephalic, atraumatic Eyes: PERRLA, EOMI ENT: Airway patent Chest: Nonlabored breathing Skin: No visual rash, normal skin tone Neuro: Alert and oriented 3 Musculoskeletal: No gross abnormalities 63 year old male with partial small bowel obstruction -NPO -NGT-LIS -IV fluids -Monitor for bowel function -Nausea Control Esa Sosa DO [facility] [phone]
--- NOTE | 2024-06-08 14:31 | P.PN ---
Subjective Progress Note Date: 06/08/24 Principal diagnosis: Mr. Membreno is a 63-year-old male with past medical history of colon cancer status post partial colectomy hernia repair x 2 who had presented to ER on June 05 with abdominal pain. He reported that he had a bowel movement prior to presentation and was reported very small. He had persistent nausea vomiting. CT abdomen pelvis revealed prominent small bowel loops with findings and consistent with a partial small bowel obstruction. NG tube was placed to low intermittent suction. Objective - Vital Signs Vital signs: Vital Signs Temp 97.9 F 06/08/24 08:00 Pulse 76 06/08/24 08:00 Resp 19 06/08/24 08:00 BP 120/78 06/08/24 08:00 Pulse Ox 98 06/08/24 03:03 FiO2 Intake & Output 06/07/24 06/08/24 06/08/24 18:59 06:59 18:59 Weight 98.43 kg - Labs CBC & Chem 7: 06/08/24 06:42 06/07/24 17:15 Labs: Abnormal Lab Results - Last 24 Hours (Table) 06/07/24 06/07/24 06/07/24 Range/Units 17:15 17:15 20:42 WBC 11.1 H (3.8-10.6) k/uL Neutrophils # 9.5 H (1.3-7.7) k/uL Sodium 136 L (137-145) mmol/L Glucose 118 H (74-99) mg/dL C-Reactive Protein 1.0 H (<1.0) mg/dL Ur Specific [place] >1.050 H (1.001-1.035) Urine Protein Trace H (Negative)
--- NOTE | 2024-06-08 16:26 | XR ---
EXAMINATION TYPE: XR chest 1V portable DATE OF EXAM: 06/08/2024 4:20 PM COMPARISON: Previous chest radiograph 06/08/2024. CLINICAL INDICATION: Male, 63 years old with history of NG TUBE PLACMENT; H TECHNIQUE: XR chest 1V portable Frontal view of the chest. FINDINGS: Lungs/Pleura: There is no evidence of pleural effusion, focal consolidation, or pneumothorax. Pulmonary vascularity: Unremarkable. Heart/mediastinum: Cardiomediastinal silhouette is unremarkable. Musculoskeletal: No acute osseous pathology. Other findings: None Lines/Tubes: Enteric tube now in abnormal positioning overlying the region of the cervical esophagus in the neck. IMPRESSION: Enteric tube now in abnormal positioning overlying the region of the cervical esophagus in the neck. Recommend repositioning/advancement. [facility], , 06/08/2024 4:24 PM
[2024-06-08] MEDS: PIPERACILLIN-TAZOBACTAM 3.375 GM in SODIUM CHLORIDE 0.9% 100 ML IVPB SCH (16:42)
[2024-06-08 16:48] LABS: African American GFR (CKD) >90 (>60 ml/min/1.73 sqM); Anion Gap 10 mmol/L; Blood Urea Nitrogen 24 mg/dL (9-20); Calcium 9.5 mg/dL (8.4-10.2); Carbon Dioxide 22 mmol/L (22-30); Chloride 107 mmol/L (98-107); Glucose 87 mg/dL (74-99); Non-African American GFR(CKD) 79 (>60 ml/min/1.73 sqM); Potassium 4.5 mmol/L (3.5-5.1); Sodium 139 mmol/L (137-145)
--- NOTE | 2024-06-08 17:27 | XR ---
EXAMINATION TYPE: XR chest 1V portable DATE OF EXAM: 06/08/2024 5:07 PM COMPARISON: Previous radiograph 06/18/2024. CLINICAL INDICATION: Male, 63 years old with history of NG tube placement.; [facility] TECHNIQUE: XR chest 1V portable Frontal view of the chest. FINDINGS: Cardiac silhouette is within normal limits for size. No acute focal consolidation. No pleural effusion. Enteric tube courses below left diaphragm with distal sidehole and tip terminating in the right hemia bdomen in the region of the distal stomach/proximal duodenum. IMPRESSION: Enteric tube with distal sidehole and tip terminating in the right hemiabdomen in the region of the d istal stomach/proximal duodenum. [facility], , 06/08/2024 5:24 PM
--- NOTE | 2024-06-08 23:23 | P.CONS ---
History of Present Illness - Reason for Consult Consult date: 06/08/24 Right leg cellulitis Requesting physician: Maggie Branham - Chief Complaint Abdominal pain x 4 days - History of Present Illness Patient is a 63-year-old male with a past medical history significant for chronic back pain colon cancer and did have a history of 2 hernia repair presented to hospital with abdominal pain that apparently has been going on for the last 3 to 4 days before presentation to the hospital patient was describing abdominal pain to be mostly generalized and almost 10 out of 10 on presentation to the hospital he did have nausea but no vomiting did have constipation patient was also complaining of some chronic swelling to the right lower extremity and some dull aching pain but no skin breakdown or any drainage apparently the patient did have a fever of 101 F before coming to the hospital however no fever has been recorded on presentation to the hospital patient was not tachycardic hypotensive or hypoxic he did have white count of 11.1 with a left shift creatinine 0.94 electrolytes normal liver enzymes normal UA has been negative patient did have abdominal pelvis CT finding was suggestive of partial distal small bowel obstruction some colonic diverticula but no diverticulitis patient was started on cefazolin concerning for right lower extremity cellulitis infectious he was consulted for further management of antibiotic therapy Review of Systems Positive point and negatives has been mentioned in the HPI, complete review of systems was performed and all other systems are negative Past Medical History Past Medical History: Cancer Additional Past Medical History / Comment(s): back pain, colon History of Any Multi-Drug Resistant Organisms: None Reported Past Surgical History: Bowel Resection, Hernia Repair Past Psychological History: No Psychological Hx Reported Smoking Status: Never smoker Past Alcohol Use History: Occasional Past Drug Use History: None Reported Medications and Allergies Home Medications Medication Instructions Recorded Confirmed Type Albuterol Sulfate [Ventolin HFA] 2 puff INHALATION RT-QID PRN 06/08/24 06/08/24 History Ibuprofen [Motrin] 800 mg PO TID PRN 06/08/24 06/08/24 History Loratadine [Claritin] 10 mg PO DAILY PRN 06/08/24 06/08/24 History Pregabalin [Lyrica] See Taper PO DIRECTED 06/08/24 06/08/24 History Sulfamethox-Tmp 800-160Mg [Bactrim 1 tab PO BID 06/08/24 06/08/24 History DS 800-160 mg] lidocaine HCL [lidocaine HCL 5 ml PO TID PRN 06/08/24 06/08/24 History Viscous] Allergies Allergy/AdvReac Type Severity Reaction Status Date / Time acetaminophen AdvReac Abdominal Verified 06/08/24 09:24 [From Darvocet-N 100] Pain propoxyphene napsylate AdvReac Abdominal Verified 06/08/24 09:24 [From Darvocet-N 100] Pain Physical Exam Vitals: Vital Signs Temp Pulse Pulse Resp BP BP Pulse Ox 06/08/24 03:03 63 18 127/84 98 06/08/24 01:30 76 18 124/88 96 06/07/24 16:44 98.3 F 88 18 125/83 97 Intake and Output 06/07/24 06/08/24 06/08/24 22:59 06:59 14:59 Other: Weight 98.43 kg GENERAL DESCRIPTION: Middle-aged male lying in bed, no distress. No tachypnea or accessory muscle of respiration use. HEENT: Shows Pallor , no scleral icterus. Oral mucous membrane is dry. No pharyngeal erythema or thrush NECK: Trachea central, no thyromegaly. LUNGS: Unlabored breathing. Clear to auscultation anteriorly. No wheeze or crackle. HEART: S1, S2, regular rate and rhythm. No loud murmur ABDOMEN: Soft, mild distention and tenderness EXTREMITIES: Did have some swelling to the right lower extremity foot and ankle area and some dry scaly skin but no redness was noticed open wound or any drainage SKIN: No rash, no masses palpable. NEUROLOGICAL: The patient is awake, alert, oriented x3, mood and affect normal. Results CBC & Chem 7: 06/08/24 06:42 06/08/24 16:14 Labs: Abnormal Lab Results - Last 24 Hours (Table) 06/07/24 06/07/24 06/07/24 Range/Units 17:15 17:15 20:42 WBC 11.1 H (3.8-10.6) k/uL Neutrophils # 9.5 H (1.3-7.7) k/uL Sodium 136 L (137-145) mmol/L Glucose 118 H (74-99) mg/dL C-Reactive Protein 1.0 H (<1.0) mg/dL Ur Specific [place] >1.050 H (1.001-1.035) Urine Protein Trace H (Negative) Assessment and Plan (1) Fever Current Visit: Yes Status: Acute Code(s): R50.9 - FEVER, UNSPECIFIED SNOMED Code(s): 692969610 (2) Leukocytosis Current Visit: Yes Status: Acute Code(s): D72.829 - ELEVATED WHITE BLOOD CELL COUNT, UNSPECIFIED SNOMED Code(s): 689694417 (3) Partial small bowel obstruction Current Visit: Yes Status: Acute Code(s): K56.600 - PARTIAL INTESTINAL OBSTRUCTION, UNSPECIFIED TO CAUSE SNOMED Code(s): 825344353 Plan: 1patient presented to hospital with abdominal pain nausea with evidence of a partial small bowel obstruction and significant distention of the bowel in the right lower quadrant area and this patient did have a history of colon cancer and hernia repair, did have fever elevated white count more likely related to the abdominal source patient did have some swelling and dry skin to the right leg but clinically doubt cellulitis. 2we will discontinue cefazolin. 3start the patient on Zosyn to cover for most abdominal floor keeping in mind his symptoms and evidence of significant dilatation of the bowel with a bowel obstruction General Surgery is already on the case. We will follow on clinical condition and cultures to further adjust medication if needed Thank you for this consultation we will follow the patient along with you Dictation was produced using [employer] dictation software. please excuse any grammatical, word or spelling errors. Time with Patient: Greater than 30
[2024-06-08] MEDS: Phenol 1.4% Sore Throat Spray Bottle MUCOUS MEM PRN (23:34)
[2024-06-09 09:50] LABS: Basophils # (A) 0.06 X 10*3/uL (0.00-0.10); Basophils % (A) 0.7 %; Eosinophils # (A) 0.23 X 10*3/uL (0.04-0.35); Eosinophils % (A) 2.6 %; HCT 41.9 % (39.6-50.0); HGB 13.1 g/dL (13.0-17.0); Lymphocytes # (A) 1.78 X 10*3/uL (0.90-5.00); Lymphocytes % (A) 20.1 %; MCH 27.8 pg (27.0-32.0); MCHC 31.3 g/dL (32.0-37.0); MCV 88.8 FL (80.0-97.0); Mean Platelet Volume 10.5 FL (9.5-12.2); Monocytes # (A) 0.75 X 10*3/uL (0.20-1.00); Monocytes % (A) 8.5 %; NRBC Per 100 WBC 0 X 10*3/uL (0.00-0.01); Neutrophils # (A) 6.02 X 10*3/uL (1.80-7.70); Neutrophils % (A) 67.9 %; Platelet Count 301 X 10*3/uL (140-440); RBC 4.72 X 10*6/uL (4.40-5.60); RDW 14.8 % (11.5-14.5); WBC 8.86 X 10*3/uL (4.50-10.00)
[2024-06-09 10:51] LABS: BUN/Creat Ratio 19.73 Ratio (12.00-20.00); Blood Urea Nitrogen 21.7 mg/dL (9.0-27.0); Calcium 8.7 mg/dL (8.7-10.3); Carbon Dioxide 24.2 mmol/L (21.6-31.8); Chloride 107 mmol/L (96-109); Glucose 94 mg/dL (70-110); Potassium 4.2 mmol/L (3.5-5.5); Sodium 141 mmol/L (135-145)
--- NOTE | 2024-06-09 11:00 | P.PN ---
Subjective Progress Note Date: 06/09/24 Principal diagnosis: Mr. Membreno is a 63-year-old male with past medical history of colon cancer status post partial colectomy hernia repair x 2 who had presented to ER on June 05 with abdominal pain. He reported that he had a bowel movement prior to presentation and was reported very small. He had persistent nausea vomiting. CT abdomen pelvis revealed prominent small bowel loops with findings and consistent with a partial small bowel obstruction. NG tube was placed to low intermittent suction. Patient seen and examined. He reports his throat pain caused by his NG tube is improved. He also expresses that he is passing flatus however has not had a bowel movement Objective - Vital Signs Vital signs: Vital Signs Temp 98.1 F 06/09/24 07:30 Pulse 68 06/09/24 07:30 Resp 20 06/09/24 07:30 BP 111/71 06/09/24 07:30 Pulse Ox 94 L 06/09/24 07:30 FiO2 Intake & Output 06/08/24 06/09/24 06/09/24 18:59 06:59 18:59 Output Total 670 Balance -670 Weight 98.43 kg Output: Urine 670 Other: Voiding Method Urinal # Voids 1 - Exam General: nontoxic, no distress, appears at stated age NG tube present, male, pleasant Derm: warm, dry, intact Head: atraumatic, normocephalic, symmetric Eyes: anicteric sclera Mouth: no lip lesion, mucus membranes moist Cardiovascular: S1 S2 reg, no murmur Lungs: CTA bilateral, no rhonchi, no rales, no accessory muscle use Abdominal: Soft nondistended, vertical surgical scar seen from prior surgery Extremities: There is very thickened skin tissue on right foot Neuro: Alert, Oriented to person, time and place, Gross neurological examination did not reveal any focal deficits. Cranial nerves II to XII grossly intact. Bilateral upper and lower extremity muscle strength intact and sensation intact. Psych: well appearing, appropriate affect - Labs CBC & Chem 7: 06/09/24 02:41 06/09/24 02:41 Labs: Abnormal Lab Results - Last 24 Hours (Table) 06/08/24 06/09/24 Range/Units 16:14 02:41 MCHC 31.3 L (32.0-37.0) g/dL RDW 14.8 H (11.5-14.5) % BUN 24 H (9-20) mg/dL Assessment and Plan Assessment: #) Partial small bowel obstruction. Continue NG tube to low intermittent suction 0.9 at 75 cc an hour. Continue as needed pain control with IV morphine as needed. Serial abdominal exams. phenol spray given throat pain caused by NG tube. He is passing flatus. Monitor for bowel movement #) Cellulitis of right lower extremity present on admission previously the patient reports that he was on antibiotics. IV cefazolin was discontinued by ID. Wound care elevation #) Asthma, stable #) Hx of colon cancer s/p partial colectomy #) Hx of inguinal and hiatal hernia s/p repair dvt ppx: lovenox 40 mg daily NPO dispo: med/surge
[2024-06-09] MEDS ORDERED: NYSTAT-TRIAMCIN 100,000-0.1 UNIT/GM-% CREAM 30 GM TUBE TOPICAL SCH (14:10)
--- NOTE | 2024-06-09 14:10 | P.PN ---
Subjective Progress Note Date: 06/09/24 Principal diagnosis: Reason for follow-up is fever bowel obstruction and right lower extremity dermatitis Patient is a 63-year-old male with a past medical history significant for chronic back pain colon cancer and did have a history of 2 hernia repair presented to hospital with abdominal pain in this patient who did have apparently fever before coming to the hospital CT was suggestive of partial distal small bowel obstruction there was concern for some right lower extremity swelling and cellulitis prompted this consultation. On today's evaluation that is 06/09/2024, Patient is afebrile patient is currently on room air and denies having any shortness of breath, the patient denies any chest pain or cough, the patient still have the NG and complaining of abdominal discomfort no bowel movement denies pain to the right lower extremity. Patient white count is 8.86, creatinine is 1.1 Objective - Vital Signs Vital signs: Vital Signs Temp 98.1 F 06/09/24 07:30 Pulse 68 06/09/24 07:30 Resp 20 06/09/24 07:30 BP 111/71 06/09/24 07:30 Pulse Ox 94 L 06/09/24 07:30 FiO2 Intake & Output 06/08/24 06/09/24 06/09/24 18:59 06:59 18:59 Output Total 670 Balance -670 Weight 98.43 kg Output: Urine 670 Other: Voiding Method Urinal # Voids 1 - Exam GENERAL DESCRIPTION: Middle-age male lying in bed in no distress RESPIRATORY SYSTEM: Unlabored breathing , decreased breath sounds at bases HEART: S1 S2 regular rate and rhythm , ABDOMEN: Soft , no tenderness EXTREMITIES: Right lower extremity dry scaly skin some swelling no drainage - Labs CBC & Chem 7: 06/09/24 02:41 06/09/24 02:41 Labs: Abnormal Lab Results - Last 24 Hours (Table) 06/08/24 06/09/24 Range/Units 16:14 02:41 MCHC 31.3 L (32.0-37.0) g/dL RDW 14.8 H (11.5-14.5) % BUN 24 H (9-20) mg/dL Assessment and Plan (1) Fever Current Visit: Yes Status: Acute Code(s): R50.9 - FEVER, UNSPECIFIED SNOMED Code(s): 670705677 (2) Leukocytosis Current Visit: Yes Status: Acute Code(s): D72.829 - ELEVATED WHITE BLOOD CELL COUNT, UNSPECIFIED SNOMED Code(s): 340718429 (3) Partial small bowel obstruction Current Visit: Yes Status: Acute Code(s): K56.600 - PARTIAL INTESTINAL OBSTRUCTION, UNSPECIFIED TO CAUSE SNOMED Code(s): 923486047 Plan: 1patient presented to hospital with abdominal pain nausea with evidence of a partial small bowel obstruction and significant distention of the bowel in the right lower quadrant area and this patient did have a history of colon cancer and hernia repair, did have fever elevated white count more likely related to the abdominal source patient did have some swelling and dry skin to the right l eg but clinically doubt cellulitis. 2we will discontinue cefazolin. 3patient to continue with Zosyn, will apply Mycolog cream to the right lower extremity swelling/dry scaly skin area Dictation was produced using [employer] dictation software. please excuse any grammatical, word or spelling errors. Time with Patient: Less than 30
[2024-06-09] MEDS: NYSTATIN 100,000UNIT/GM CREAM 30 GM TUBE TOPICAL SCH (17:10)
[2024-06-09] MEDS: TRIAMCINOLONE 0.1% CREAM 80 GM TUBE TOPICAL SCH (17:10)
--- NOTE | 2024-06-10 01:00 | P.PN ---
Progress Note - Text Progress Note Date: 06/09/24 Patient seen and examined overnight. He states he not passing gas or having bowel movements. General Exam Vital signs reviewed General: Well-appearing, nontoxic, no acute distress. Head: Normocephalic, atraumatic Eyes: PERRLA, EOMI ENT: Airway patent Chest: Nonlabored breathing Skin: No visual rash, normal skin tone Neuro: Alert and oriented 3 Musculoskeletal: No gross abnormalities 63 year old male with partial small bowel obstruction -NPO -NGT-LIS -IV fluids -Monitor for bowel function -Nausea Control Esa Sosa DO [facility] [phone]
--- NOTE | 2024-06-10 13:36 | P.PN ---
Subjective Progress Note Date: 06/10/24 Principal diagnosis: SBO 63-year-old male with past medical history of colon cancer status post partial colectomy hernia repair x 2 who had presented to ER on June 05 with abdominal pain. He reported that he had a bowel movement prior to presentation and was reported very small. He had persistent nausea vomiting. CT abdomen pelvis revealed prominent small bowel loops with findings and consistent with a partial small bowel obstruction. NG tube was placed to low intermittent suction. 06/10 Feeling much better today. NG output at 400cc last night according to nursing. P ain is improved. No nausea, no fevers. Objective - Vital Signs Vital signs: Vital Signs Temp 97.7 F 06/10/24 07:43 Pulse 70 06/10/24 08:00 Resp 16 06/10/24 08:00 BP 125/81 06/10/24 07:43 Pulse Ox 96 06/10/24 07:43 FiO2 Intake & Output 06/09/24 06/10/24 06/10/24 18:59 06:59 18:59 Output Total 200 345 Balance -200 -345 Output: Urine 200 345 Other: Voiding Method Urinal Urinal # Voids 1 - Labs CBC & Chem 7: 06/09/24 02:41 06/09/24 02:41 Assessment and Plan Plan: #) Partial small bowel obstruction. Surgery following. Continue NG tube to low intermittent suction, continue 0.9 at 75 cc an hour. Now has good bowel sounds, D/w nursing, consider clamping NG. Continue as needed pain control with IV morphine as needed. phenol spray given throat pain caused by NG tube. He is passing flatus. Monitor for bowel movement #) Cellulitis of right lower extremity present on admission previously the patient reports that he was on antibiotics. IV cefazolin was discontinued by ID. Wound care elevation #) Asthma, stable #) Hx of colon cancer s/p partial colectomy #) Hx of inguinal and hiatal hernia s/p repair dvt ppx: lovenox 40 mg daily NPO dispo: med/surge
--- NOTE | 2024-06-10 15:50 | P.PN ---
Subjective Progress Note Date: 06/10/24 CHIEF COMPLAINT: Bowel obstruction HISTORY OF PRESENT ILLNESS: The patient is a 63-year-old male with prior history of colectomy for colon cancer, hernia repair x 2, over 20+ years ago who presents with acute bowel obstruction. He has had a nasogastric tube. Contents from NG he does complain of acute tube has been dark to black. He is passing flatus. He had a bowel movement. Reports his abdomen feels back to normal. He is eager to eat and is thirsty. Right lower extremity foot and leg swelling which is improved since he has been in the hospital due to infection per his report. ROS: No reports of nausea and vomiting. No fevers or chills. No new chest pain. No productive sputum. Morbid obesity due to excess calories, BMI 35.0. PHYSICAL EXAM: VITAL SIGNS: Reviewed CONSTITUTIONAL: Well developed and in no acute distress. EYES: Conjuctivae without sclera icterus. Extraocular movements grossly intact. HEAD, EARS, NOSE, THROAT: Moist buccal mucosa. Head is atraumatic, normocep halic. Hears conversational speech. Nasogastric tube dark black content. RESPIRATORY: Non-labored respirations and equal bilateral excursions. CARDIOVASCULAR: Palpable 2+ radial pulses. ABDOMEN: Protuberant. Nondistended. Nontender. MUSCULOSKELETAL: No gross deformity of the lower extremities noted. No clubbing. No cyanosis. Moderate molting of right lower extremity and foot with skin changes. SKIN: Good skin turgor. Well perfused. NEUROLOGIC: Cranial nerves II through XII grossly intact. No focal or lateralizing signs. PSYCH: Appropriate affect. Alert and oriented to person, place and time. CLINICAL LABS: Reviewed. WBC and hemoglobin normal. ASSESSMENT: 1. Bowel obstruction due to adhesions 2. History of colon cancer 3. Right lower extremity cellulitis PLAN: 1. Clinically, patient's bowel obstruction has not resolved as reports passing flatus, resolved abdominal pain including nausea and vomiting. I personally discontinued his nasogastric tube at bedside. 2. Start of liquids. Patient emphasized to drink warm beverages. 3. May advance diet as tolerated Objective - Vital Signs Vital signs: Vital Signs Temp 98.4 F 06/10/24 13:37 Pulse 77 06/10/24 13:37 Resp 16 06/10/24 13:37 BP 130/83 06/10/24 13:37 Pulse Ox 97 06/10/24 13:37 FiO2 Intake & Output 06/09/24 06/10/24 06/10/24 18:59 06:59 18:59 Output Total 200 345 Balance -200 -345 Output: Urine 200 345 Other: Voiding Method Urinal Urinal # Voids 1 - Labs CBC & Chem 7: 06/09/24 02:41 06/09/24 02:41
[2024-06-10] MEDS: PANTOPRAZOLE 40 MG/10 ML VIAL IVP SCH (15:58)
[2024-06-10 17:31] VITALS: BMI 35.0
[2024-06-11 08:57] LABS: BUN/Creat Ratio 20.67 Ratio (12.00-20.00); Blood Urea Nitrogen 18.6 mg/dL (9.0-27.0); Calcium 8.3 mg/dL (8.7-10.3); Carbon Dioxide 24.5 mmol/L (21.6-31.8); Chloride 108 mmol/L (96-109); Glucose 88 mg/dL (70-110); Potassium 3.7 mmol/L (3.5-5.5); Sodium 141 mmol/L (135-145)
[2024-06-11 14:41] VITALS: BP 150/70; RESP 17; TEMP 98.1
[2024-06-11 14:43] VITALS: PULSE 75
--- NOTE | 2024-06-11 14:51 | P.PN ---
Subjective Progress Note Date: 06/10/24 Principal diagnosis: Reason for follow-up is fever bowel obstruction and right lower extremity dermatitis Patient is a 63-year-old male with a past medical history significant for chronic back pain colon cancer and did have a history of 2 hernia repair presented to hospital with abdominal pain in this patient who did have apparently fever before coming to the hospital CT was suggestive of partial distal small bowel obstruction there was concern for some right lower extremity swelling and cellulitis prompted this consultation. On today's evaluation that is 06/10/2023, patient has been afebrile, patient is breathing comfortably and is currently on room air, patient denies having any significant cough no chest pain, patient still have the NG abdominal pain is currently controlled and having a bowel movement denies pain to the right lower extremity. Patient did not have lab draw today Objective - Vital Signs Vital signs: Vital Signs Temp 97.7 F 06/10/24 07:43 Pulse 70 06/10/24 08:00 Resp 16 06/10/24 08:00 BP 125/81 06/10/24 07:43 Pulse Ox 96 06/10/24 07:43 FiO2 Intake & Output 06/09/24 06/10/24 06/10/24 18:59 06:59 18:59 Output Total 200 345 Balance -200 -345 Output: Urine 200 345 Other: Voiding Method Urinal Urinal # Voids 1 - Exam GENERAL DESCRIPTION: Middle-age male lying in bed in no distress RESPIRATORY SYSTEM: Unlabored breathing , decreased breath sounds at bases HEART: S1 S2 regular rate and rhythm , ABDOMEN: Soft , no tenderness EXTREMITIES: Right lower extremity dry scaly skin some swelling no drainage - Labs CBC & Chem 7: 06/09/24 02:41 06/11/24 03:16 Assessment and Plan (1) Fever Current Visit: Yes Status: Acute Code(s): R50.9 - FEVER, UNSPECIFIED SNOMED Code(s): 423399362 (2) Leukocytosis Current Visit: Yes Status: Acute Code(s): D72.829 - ELEVATED WHITE BLOOD CELL COUNT, UNSPECIFIED SNOMED Code(s): 858191414 (3) Partial small bowel obstruction Current Visit: Yes Status: Acute Code(s): K56.600 - PARTIAL INTESTINAL OBSTRUCTION, UNSPECIFIED TO CAUSE SNOMED Code(s): 739439876 Plan: 1patient presented to hospital with abdominal pain nausea with evidence of a partial small bowel obstruction and significant distention of the bowel in the right lower quadrant area and this patient did have a history of colon cancer and hernia repair, did have fever elevated white count more likely related to the abdominal source patient did have some swelling and dry skin to the right leg but clinically doubt cellulitis. 2patient to continue with Zosyn, along with Mycolog cream to the right lower extremity swelling/dry scaly skin area Dictation was produced using [employer] dictation software. please excuse any grammatical, word or spelling errors. Time with Patient: Less than 30
--- NOTE | 2024-06-11 14:52 | P.PN ---
Subjective Progress Note Date: 06/11/24 Principal diagnosis: Reason for follow-up is fever bowel obstruction and right lower extremity dermatitis Patient is a 63-year-old male with a past medical history significant for chronic back pain colon cancer and did have a history of 2 hernia repair presented to hospital with abdominal pain in this patient who did have apparently fever before coming to the hospital CT was suggestive of partial distal small bowel obstruction there was concern for some right lower extremity swelling and cellulitis prompted this consultation. On today's evaluation that is 06/11/2023, Patient is afebrile this morning patient denies having any chest pain shortness of breath or cough, the patient is currently on room air, patient denies any abdominal pain, he did have a bowel movement which was soft solid NG has been discontinued feeling better he denies pain to the right lower extremity. Patient did have a creatinine 0.9 Objective - Vital Signs Vital signs: Vital Signs Temp 98.1 F 06/11/24 14:28 Pulse 75 06/11/24 14:43 Resp 17 06/11/24 14:28 BP 150/70 06/11/24 14:28 Pulse Ox 97 06/11/24 14:43 FiO2 Intake & Output 06/10/24 06/11/24 06/11/24 18:59 06:59 18:59 Intake Total 1999 720 Output Total 1 Balance 1999 719 Weight 98.43 kg Intake: Oral 1999 720 Output: Urine 1 Other: Voiding Method Urinal Urinal Urinal # Voids 3 3 1 # Bowel Movements 1 1 1 - Exam GENERAL DESCRIPTION: Middle-age male lying in bed in no distress RESPIRATORY SYSTEM: Unlabored breathing , decreased breath sounds at bases HEART: S1 S2 regular rate and rhythm , ABDOMEN: Soft , no tenderness EXTREMITIES: Right lower extremity swelling has decreased did have some scaly skin no redness - Labs CBC & Chem 7: 06/09/24 02:41 06/11/24 03:16 Labs: Abnormal Lab Results - Last 24 Hours (Table) 06/11/24 Range/Units 03:16 BUN/Creatinine Ratio 20.67 H (12.00-20.00) Ratio Calcium 8.3 L (8.7-10.3) mg/dL Assessment and Plan (1) Fever Current Visit: Yes Status: Acute Code(s): R50.9 - FEVER, UNSPECIFIED SNOM ED Code(s): 254896144 (2) Leukocytosis Current Visit: Yes Status: Acute Code(s): D72.829 - ELEVATED WHITE BLOOD CELL COUNT, UNSPECIFIED SNOMED Code(s): 162813924 (3) Partial small bowel obstruction Current Visit: Yes Status: Acute Code(s): K56.600 - PARTIAL INTESTINAL OBSTRUCTION, UNSPECIFIED TO CAUSE SNOMED Code(s): 095329858 Plan: 1patient presented to hospital with abdominal pain nausea with evidence of a partial small bowel obstruction and significant distention of the bowel in the right lower quadrant area and this patient did have a history of colon cancer and hernia repair, did have fever elevated white count more likely related to the abdominal source patient did have some swelling and dry skin to the right leg but clinically doubt cellulitis. 2patient to continue with Zosyn while inpatient will transition to oral antibiotic on discharge 3continue with Mycolog cream to the right lower extremity swelling/dry scaly skin area inview of the clinical improvement Dictation was produced using [employer] dictation software. please excuse any grammatical, word or spelling errors. Time with Patient: Less than 30
--- NOTE | 2024-06-11 17:38 | P.DS ---
Providers Date of admission: 06/07/24 22:12 Attending physician: Dayton Cabrera MD Consults: 06/08/24 04:17 Consult Physician Routine Consulting Provider: Dl Penn Consult Reason/Comments: Chronic Cellulitis of Right Lower Extremity Do you want consulting provider notified?: Yes, Notify in am 06/10/24 10:44 Consult Physician Routine Consulting Provider: Mohamud Moore Consult Reason/Comments: PSBO Do you want consulting provider notified?: Already Contacted Primary care physician: Maggie Branham MD Hospital Course: Discharge Diagnosis: Partial small bowel obstruction Cellulitis of the right lower extremity Asthma, normal exacerbation History of colon cancer status post partial colectomy History of Hiatal hernia repair Hospital Course: 63-year-old male with past medical history of colorectal cancer status post partial colectomy, hernia repair, asthma, presented to the ED with abdominal pain, fever, CT was showing partial distal small bowel obstruction, patient had NG tube inserted, surgery consulted. Patient eventually improved NG tube was removed and patient was started on diet that he tolerated well and started having formed bowel movements and passing flatus. There was also concern for right lower extremity swelling and cellulitis, ED was consulted, patient was started on Zosyn, Mycolog cream with significant symptoms improvement. She will be discharged home on oral cephalexin for nonpurulent cellulitis, follow-up with primary care physician Patient seen and examined at bedside.[] Vital signs reviewed and stable. General: [nontoxic], [no distress], [appears at stated age] Derm: [warm], [dry] Head: [atraumatic], [normocephalic], [symmetric] Eyes: [EOMI], [no lid lag], [anicteric sclera] Mouth: [no lip lesion], [mucus membranes moist] Cardiovascular: [S1S2 reg], [no murmur] Lungs: [CTA bilateral], [no rhonchi, no rales] , [no accessory muscle use] Abdominal: [soft], [ nontender to palpation], [no guarding], [no appreciable organomegaly] Ext: Right lower extremity chronic venous stasis discoloration, erythema, skin peeling, all of the above improved per patient Neuro: [ CN II-XI grossly intact], [no focal neuro deficits] Psych: [Alert], [oriented], [appropriate affect] A total of 40 minutes of time were spent preparing this complex discharge summary. Patient was discharged on 06/11/2024. Patient Condition at Discharge: Serious Plan - Discharge Summary Discharge Rx Participant: No New Discharge Prescriptions: New Triamcinolone 0.1% Cream [Kenalog 0.1% Cream] 1 applic TOPICAL BID #2 each Cephalexin [Keflex] 500 mg PO Q6HR 4 Days #4 cap Continue Albuterol Sulfate [Ventolin HFA] 2 puff INHALATION RT-QID PRN PRN Reason: Shortness Of Breath Ibuprofen [Motrin] 800 mg PO TID PRN PRN Reason: Pain Pregabalin [Lyrica] See Taper PO DIRECTED lidocaine HCL [lidocaine HCL Viscous] 5 ml PO TID PRN PRN Reason: Sore Throat Loratadine [Claritin] 10 mg PO DAILY PRN PRN Reason: Allergy Symptoms Discontinued Sulfamethox-Tmp 800-160Mg [Bactrim DS 800-160 mg] 1 tab PO BID Discharge Medication List Albuterol Sulfate [Ventolin HFA] 2 puff INHALATION RT-QID PRN 06/08/24 [History] Ibuprofen [Motrin] 800 mg PO TID PRN 06/08/24 [History] Loratadine [Claritin] 10 mg PO DAILY PRN 06/08/24 [History] Pregabalin [Lyrica] See Taper PO DIRECTED 06/08/24 [History] lidocaine HCL [lidocaine HCL Viscous] 5 ml PO TID PRN 06/08/24 [History] Cephalexin [Keflex] 500 mg PO Q6HR 4 Days #4 cap 06/11/24 [Rx] Triamcinolone 0.1% Cream [Kenalog 0.1% Cream] 1 applic TOPICAL BID #2 each 06/11/24 [Rx] Follow up Appointment(s)/Referral(s): Maggie Branham MD [Primary Care Provider] - 1-2 days Patient Instructions/Handouts: Cellulitis (GEN), Bowel Obstruction (DC) Activity/Diet/Wound Care/Special Instructions: Please, follow up with your PCP Discharge Disposition: HOME SELF-CARE
--- NOTE | 2024-06-12 13:38 | P.PN ---
Subjective Progress Note Date: 06/11/24 CHIEF COMPLAINT: Bowel obstruction HISTORY OF PRESENT ILLNESS: The patient is a 63-year-old male admitted for bowel obstruction. He is tolerating liquids and is hungry. Passing flatus having bowel movements. He is sitting up in bedside tolerating liquid diet. He is seeking more food. ROS: No reports of nausea and vomiting. No fevers or chills. No new chest pain. No productive sputum. Morbid obesity due to excess calories, BMI 35.0. PHYSICAL EXAM: VITAL SIGNS: Reviewed CONSTITUTIONAL: Well developed and in no acute distress. EYES: Conjuctivae without sclera icterus. Extraocular movements grossly intact. HEAD, EARS, NOSE, THROAT: Moist buccal mucosa. Head is atraumatic, normocepha lic. Hears conversational speech. Nasogastric tube dark black content. RESPIRATORY: Non-labored respirations and equal bilateral excursions. CARDIOVASCULAR: Palpable 2+ radial pulses. ABDOMEN: Protuberant. Nondistended. Nontender. MUSCULOSKELETAL: No gross deformity of the lower extremities noted. No clubbing. No cyanosis. SKIN: Good skin turgor. Well perfused. NEUROLOGIC: Cranial nerves II through XII grossly intact. No focal or lateralizing signs. PSYCH: Appropriate affect. Alert and oriented to person, place and time. CLINICAL LABS: Reviewed. Electrolytes within normal limits. ASSESSMENT: 1. Bowel obstruction due to adhesions 2. History of colon cancer 3. Right lower extremity cellulitis PLAN: 1. Will advance diet to regular. 2. Stable for discharge from a surgical standpoint when medically stable. Objective - Vital Signs Vital signs: Vital Signs Temp 98.1 F 06/11/24 14:28 Pulse 75 06/11/24 14:43 Resp 17 06/11/24 14:28 BP 150/70 06/11/24 14:28 Pulse Ox 97 06/11/24 14:43 FiO2 Intake & Output 06/11/24 06/12/24 06/12/24 18:59 06:59 18:59 Other: Voiding Method Urinal # Voids 1 # Bowel Movements 1 - Labs CBC & Chem 7: 06/09/24 02:41 06/11/24 03:16
== END 2024-06-11 18:30 | disposition home or self-care (01) | DRG 247 ==
LOC: EC 16:35 → 4SSUR 22:12
PROVIDERS: ADMIT Internal Medicine; ATTEND Internal Medicine
PROC: 0D9670Z Drainage of Stomach with Drainage Device, Via Natural or Artificial Opening (ICD-10-PCS; principal; 2024-06-07)
DX: K56.51 Intestinal adhesions [bands], with partial obstruction (principal); L03.115 Cellulitis of right lower limb; J45.909 Unspecified asthma, uncomplicated; M79.89 Other specified soft tissue disorders; R07.0 Pain in throat; E66.01 Morbid (severe) obesity due to excess calories; L30.9 Dermatitis, unspecified; Z85.048 Personal history of other malignant neoplasm of rectum, rectosigmoid junction, and anus; Z90.49 Acquired absence of other specified parts of digestive tract; Z88.6 Allergy status to analgesic agent; Z91.09 Other allergy status, other than to drugs and biological substances; Z68.35 Body mass index [BMI] 35.0-35.9, adult
CPT/HCPCS: 36415; 71045; 74177; 80048; 80053; 81003; 82150; 83605; 83690; 85025; 86140; 96361; 96365; 96366; 96367; 96372; 96375; 96376; 99285

== ENCOUNTER → 2024-06-25 | Outpatient (CLI) | payer OTHER ==
--- NOTE | 2024-06-25 13:38 | US ---
EXAMINATION TYPE: US thyroid st tissue head/neck DATE OF EXAM: 06/25/2024 COMPARISON: NONE CLINICAL INDICATION: Male, 63 years old with history of E07.9 THYROID NODULE; pt feeling lump near s ubmandibular gland TECHNIQUE: Grayscale and color Doppler imaging of the thyroid gland. FINDINGS: GLAND SIZE: Right Lobe: 3.2x1.1x1.4cm Overall Parenchyma: heterogeneous Left Lobe: 3.1x1.3x1.5cm Overall Parenchyma: heterogeneous Isthmus Thickness: 0.4m NODULES RIGHT: # of nodules measured on right: 0 LEFT: # of nodules measured on left: 0 ISTHMUS: # of nodules measured in the isthmus: 0 Pt AOC (near submandibular gland) ?Lymph node: 0.8x0.8x0.6cm Bilateral neck scanned, no evidence of lymphadenopathy. IMPRESSION: 1. Heterogeneous thyroid tissue suggestive of thyroiditis. No sizable solid or cystic nodule. 2. And near the area of palpable abnormality there is a small 8 mm soft tissue nodule most likely rel ated to a benign lymph node. 2017 ACR TI-RADS LEVEL: TR-RADS 1 - BENIGN: No FNA *Highest TI-RADS level nodule reported [email or web address] [facility], , 06/25/2024 1:36 PM
== END | disposition home or self-care (01) ==
LOC: RADUSWWP 12:47
DX: E07.9 Disorder of thyroid, unspecified (principal)
CPT/HCPCS: 76536

== ENCOUNTER → 2024-08-24 | Outpatient (CLI) | payer OTHER ==
--- NOTE | 2024-08-25 16:49 | MR ---
EXAMINATION TYPE: MR abdomen wo/w con DATE OF EXAM: 08/24/2024 2:20 PM COMPARISON: CT scan abdomen from 06/07/2024. 09/12/2011 CLINICAL INDICATION: Male, 64 years old with history of E27.8 OTHER SPECIFIED DISORDER ADRENAL GLAND; Back pain, abnormal CT. TECHNIQUE: Multiplanar multi-sequence imaging was performed without contrast. Post contrast imaging was performed. Post IV contrast subtraction images were also submitted for review. IV Contrast: 9.5 mL Gadobutrol FINDINGS: LOWER CHEST: No gross irregularity. ABDOMEN Liver: No evidence for hepatic steatosis or cirrhosis. Gallbladder and Bile ducts: No evidence for ductal dilation, or biliary stricture or evidence of chol edocholithiasis. The gallbladder is within normal limits. Pancreas: No ductal dilation. No evidence for solid mass. Spleen: Normal for size. Adrenal glands: 22 mm left adrenal nodule previously 19 mm on 09/12/2011 with mild enhancement on postc ontrast imaging. There is some curvilinear loss of signal on chemical shift imaging. Kidneys: No evidence for obstructive uropathy. No suspicious renal masses. Stomach and Bowel: No evidence for bowel wall thickening or evidence for obstruction. Retroperitoneum/Peritoneum: No evidence of pneumoperitoneum or free fluid. Vasculature: No aortic aneurysm. Musculoskeletal: The osseous structures appear intact. Lymph Nodes: No gross evidence for lymphadenopathy. Abdominal wall: Ventral wall hernia repair changes mesh appears in appropriate position. IMPRESSION: 1. Left adrenal nodule measuring 22 mm may be fractionally larger than 2012 where it was compatible w ith lipid rich adrenal adenoma. No suspicious masses or acute abdominal process. 2. Ventral wall hernia repair changes mesh appears in appropriate position. [facility], , 08/25/2024 4:47 PM
== END | disposition home or self-care (01) ==
LOC: RADMRIMAIN 13:23
DX: E27.8 Other specified disorders of adrenal gland (principal)
CPT/HCPCS: 74183; A9585